=== PATIENT | male | born 2000 | race Caucasian/White ===

== ENCOUNTER 2022-09-16 14:57 | Outpatient (OUT) | payer MEDICAID, SELFPAY ==
--- NOTE | 2022-09-16 15:06 | XR_ITS ---
[address] [address] Patient Name: ZAIRA FREITAS MRN: [id number] date: 2000 Sex: M Assigned Patient Location: RAD Current Patient Location: RAD Accession/Order Number: [id number] Exam Date: 09/16/2022 15:10 Report Date: 09/16/2022 15:55 At the request of: NA SUMNER Procedure: XR chest 2V EXAM: XR chest 2V HISTORY: Acute URI J06.9 . Cough with shortness of breath for 3 days. COMPARISON: 08/09/2013 TECHNIQUE: Upright PA and lateral chest x-ray FINDINGS: The heart is not enlarged and the vasculature is not distended. No acute infiltrate, effusion or pneumothorax is identified. The osseous structures are grossly intact. XR/XR chest 2V IMPRESSION: No acute infiltrate or evidence of cardiac decompensation. The overall appearance of the chest is essentially unchanged. Electronically authenticated by: KELSIE BOONE Date: 09/16/2022 15:55
== END 2022-09-16 14:58 | disposition home or self-care (01) ==
LOC: RAD 15:01
PROVIDERS: PCP Family Medicine; Visit Provider Family Medicine
DX: J06.9 Acute upper respiratory infection, unspecified (principal)
CPT/HCPCS: 71046

== ENCOUNTER 2022-10-05 15:39 | Emergency (ER) | payer MEDICAID, SELFPAY ==
[2022-10-05 15:43] VITALS: BP 163/100; PULSE 100; RESP 20; TEMP 36.6; O2SAT 97; BMI 34.4
--- NOTE | 2022-10-05 15:56 | XR_ITS ---
The [address] [address] Patient Name: ZAIRA FREITAS MRN: [id number] date: 2000 Sex: M Assigned Patient Location: ED.MAIN Current Patient Location: ER Accession/Order Number: [id number] Exam Date: 10/05/2022 16:38 Report Date: 10/05/2022 16:54 At the request of: SPARKLE FINCH Procedure: XR chest 1V EXAMINATION: XR chest 1V HISTORY: Cough COMPARISON: None. TECHNIQUE: Portable chest FINDINGS: The lung parenchyma is free of consolidation or infiltrate. No pneumothorax or pleural effusion. The cardiac, mediastinal and hilar contours are normal. The visualized osseous structures exhibit no gross abnormality. XR/XR chest 1V IMPRESSION: No acute cardiopulmonary abnormality. Electronically authenticated by: DONNELL SOTO Date: 10/05/2022 16:54
--- NOTE | 2022-10-05 15:58 | ED_ITS ---
HPI - URI/Sore Throat General Chief Complaint: Upper Respiratory Infection Stated Complaint: COUGH/SHORTNESS OF BREATH Time Seen by Provider: 10/05/22 15:44 Source: patient and family History of Present Illness HPI Narrative: This document has been composed with a new electronic medical record and [employer] voice recognition system. This document may not fully inaccurately reflect the entirety of the patient encounter.this patient's here with his father for evaluation of an ongoing cough. The father is very frustrated because he's had this cough for approximately one month. He is known to have childhood asthma. He saw his primary care doctor recently and was placed on steroids and amoxicillin. He is notspecifically he was tested for Covid or had a respiratory panel. He is under the care of Dr. Barrera printed circuit board panels developer here but the father says they have never appointments he another printed circuit board panels developer to get another opinion. He had a recent outpatient chest x-ray that did not show any pneumonia. He was placed on some acid blockers in thinking that it might be GERD. No other household members are ill. He does not use tobacco products. Related Data Allergies Allergy/AdvReac Type Severity Reaction Status Date / Time cefotaxime [From Claforan] AdvReac Unknown Verified 10/05/22 15:47 Exam Narrative Exam Narrative: awake alert pleasant good historian no apparent distress. Pulse oximetry today is ninety-seven percent on room air with no respiratory distress. He does not display any cyanosis central or peripheral. His voice and phonation are normal there is no upper airway obstruction or distress. HEENT shows no nasal rhinitis neck is soft and supple no meningeal irritation. Next is lungs were clear but with coughing he has slight respiratory wheezing. I've requested respiratory therapy do peak packs per a flow rates but they no longer have a device to make those measurements apparently according to the restroom therapist. Heart sounds are normal with no clicks or murmurs. Extremities shows no history deep vein thrombosis phlebitis edema or cellulitis. Constitutional Vital Signs, click to edit/add: Last Vital Signs Temp 98 F 10/05/22 15:43 Pulse 100 H 10/05/22 15:43 Resp 20 10/05/22 15:43 BP 163/100 H 10/05/22 15:43 Pulse Ox 97 10/05/22 15:43 O2 Del Method Room Air 10/05/22 15:43 Course Vital Signs Vital signs: Vital Signs Temperature 98 F 10/05/22 15:43 Pulse Rate 100 H 10/05/22 15:43 Respiratory Rate 20 10/05/22 15:43 Blood Pressure 163/100 H 10/05/22 15:43 Pulse Oximetry 97 10/05/22 15:43 Oxygen Delivery Method Room Air 10/05/22 15:43 Temperature 98 F 10/05/22 15:43 Pulse Rate 100 H 10/05/22 15:43 Respiratory Rate 20 10/05/22 15:43 Blood Pressure 163/100 H 10/05/22 15:43 Pulse Oximetry 97 10/05/22 15:43 Oxygen Delivery Method Room Air 10/05/22 15:43 MDM - URI/Sore Throat MDM Narrative Medical decision making narrative: this patient is currently on antibiotics but shows no infectious symptomatology. A PCR respiratory panel was done and is negative for all acute respiratory pathogens. His chest x-ray is completely clear cardiac size is normal. When I auscultate after the breathing treatment is he is better. Upon further questioning it turns out that he has not been using his Symbicort inhaler for the last several months. He's been on that for many years but for some reason was not using it anymore even though he has it at home. I'm advising him to restart that I believe his cough is probably due to mild respiratory bronchospasm and mucous production. They can prop the bed up a little bit in case there is some GERD. They are scheduled to see a new printed circuit board panels developer and they were encouraged to take a list of all his medicines so they can be precisely when the evaluate his medical treatment plan Lab Data Labs: Lab Results 10/05/22 Range/Units 15:57 Adenovirus (PCR) Not detected (NOT DETECTE) C. pneumoniae DNA (PCR) Not detected (NOT DETECTE) Coronavirus Type OC43 Not detected (NOT DETECTE) Coronavirus Type HKU1 Not detected (NOT DETECTE) Coronavirus Type 229E Not detected (NOT DETECTE) Coronavirus Type NL63 Not detected (NOT DETECTE) Human Metapneumovir PCR Not detected (NOT DETECTE) M. pneumoniae (PCR) Not detected (NOT DETECTE) Parainfluenza PCR Not detected (NOT DETECTE) Parainfluenza 2 (PCR) Not detected (NOT DETECTE) Parainfluenza 3 (PCR) Not detected (NOT DETECTE) Parainfluenza 4 (PCR) Not detected (NOT DETECTE) RSV (RT-PCR) Not detected (NOT DETECTE) Entero/Rhino (PCR) Not detected (NOT DETECTE) SARS-CoV-2 (PCR) Not detected (NOT DETECTE) Bordetella pertussis (PCR) Not detected (NOT DETECTE) B parapertussis DNA PCR Not detected (NOT DETECTE) Influenza Type A (PCR) Not detected (NOT DETECTE) Influenza Type B (PCR) Not detected (NOT DETECTE) Discharge Plan Discharge Chief Complaint: Upper Respiratory Infection Clinical Impression: Asthma Patient Disposition: Home, Self-Care Time of Disposition Decision: 17:24 Additional Instructions: restart Symbicort as you've been taking it for many years. Finish her antibiotic. Follow-up with a new printed circuit board panels developer Stand Alone Forms: Portal Instructions Referrals: Juan José Mederos MD [Primary Care Provider] - 1 week
[2022-10-05 16:02] LABS: Adenovirus NOT DETECTED (NOT DETECTE); Bordetella parapertussis NOT DETECTED (NOT DETECTE); Coronavirus 229E NOT DETECTED (NOT DETECTE); Coronavirus HKU1 NOT DETECTED (NOT DETECTE); Coronavirus NL63 NOT DETECTED (NOT DETECTE); Coronavirus OC43 NOT DETECTED (NOT DETECTE); Human Metapneumovirus NOT DETECTED (NOT DETECTE); Human Rhinovirus/Enterovirus NOT DETECTED (NOT DETECTE); Influenza A NOT DETECTED (NOT DETECTE); Influenza B NOT DETECTED (NOT DETECTE); Mycoplasma pneumoniae NOT DETECTED (NOT DETECTE); Parainfluenza Virus 1 NOT DETECTED (NOT DETECTE); Parainfluenza Virus 2 NOT DETECTED (NOT DETECTE); Parainfluenza Virus 3 NOT DETECTED (NOT DETECTE); Parainfluenza Virus 4 NOT DETECTED (NOT DETECTE); Respiratory Syncytial Virus NOT DETECTED (NOT DETECTE); SARS-CoV-2 NOT DETECTED (NOT DETECTE)
[2022-10-05] MEDS: IPRATROPIUM/ALBUTEROL SULFATE 3 ML AMPUL.NEB IH (16:25)
== END 2022-10-05 17:42 | disposition home or self-care (01) ==
PROVIDERS: Emergency Provider Emergency Medicine Emergency Medical Services; PCP Family Medicine
DX: J45.909 Unspecified asthma, uncomplicated (principal); Z20.822 Contact with and (suspected) exposure to COVID-19
CPT/HCPCS: 0202U; 71045; 94640; 99284

== ENCOUNTER 2022-10-07 15:43 | Outpatient (OUT) | payer MEDICAID, SELFPAY ==
[2022-10-07 16:30] LABS: Basophils Absolute Auto 0.1 10^3/uL (0.0-0.1); Basophils Percent Auto 0.8 % (0.2-2.0); Eosinophils Absolute Auto 0.1 10^3/uL (0.0-0.7); Eosinophils Percent Auto 2.2 % (0.9-7.0); Hematocrit 44.6 % (42.0-54.0); Hemoglobin 14.7 g/dL (14.0-18.0); Immature Granulocytes Abs Auto 0.02 10^3/uL (0.00-0.03); Immature Granulocytes Pct Auto 0.3 % (0.0-0.5); Lymphocytes Absolute Auto 2.9 10^3/uL (1.2-3.8); Lymphocytes Percent Auto 44.8 % (20.5-60.0); Mean Corpuscular Hemoglobin 26.9 pg (25.9-34.0); Mean Corpuscular Volume 81.7 fL (80.0-94.0); Monocytes Absolute Auto 0.5 10^3/uL (0.3-0.8); Neutrophils Absolute Auto 2.9 10^3/uL (1.4-6.5); Neutrophils Percent Auto 44.9 % (43.0-75.0); Platelet Count 287 10^3/uL (150-450); Red Blood Count 5.46 10^6/uL (4.70-6.10); Red Cell Distribution Width 14.7 % (11.0-15.0); White Blood Count 6.4 10^3/uL (4.0-11.0)
[2022-10-07 17:11] LABS: Percent Iron Saturation 16.2 %
[2022-10-07 17:22] LABS: Alanine Aminotransferase 40 U/L (16-63); Albumin Globulin Ratio 1.1; Albumin Level 4.1 g/dL (3.4-5.0); Alkaline Phosphatase 86 U/L (46-116); Anion Gap 13.9; Aspartate Amino Transferase 21 U/L (15-37); BUN Creatinine Ratio 11.2; Bilirubin Direct 0.1 mg/dL (0.0-0.2); Bilirubin Total 0.7 mg/dL (0.2-1.0); Calcium 9.4 mg/dL (8.5-10.1); Chloride 102 mmol/L (98-107); Estimated GFR (African America >60 (>=60); Estimated GFR (Non-African Ame >60 (>=60); Free T3 3.31 pg/mL (2.18-3.98); Globulin 3.6 g/dL; Glucose 79 mg/dL (74-106); Potassium 3.9 mmol/L (3.5-5.1); Sodium 140 mmol/L (136-145); Thyroid Stimulating Hormone 0.926 uIU/mL (0.358-3.740); Total Protein 7.7 g/dL (6.4-8.2)
[2022-10-07 17:30] LABS: Free T4 1.12 ng/dL (0.76-1.46)
== END 2022-10-07 15:44 | disposition home or self-care (01) ==
LOC: LAB 15:45
PROVIDERS: PCP Family Medicine; Visit Provider Family Medicine
DX: Z00.00 Encounter for general adult medical examination without abnormal findings (principal)
CPT/HCPCS: 36415; 80048; 80076; 82728; 83540; 83550; 84439; 84443; 84481; 85025

== ENCOUNTER 2022-11-07 16:20 | Emergency (ER) | payer MEDICAID, SELFPAY ==
[2022-11-07 16:22] VITALS: BP 142/90; PULSE 90; RESP 18; TEMP 36.6; O2SAT 99; BMI 38.0
--- NOTE | 2022-11-07 16:27 | PC.NURSE ---
pt presents to ED because pt states that he has had a headache and neck pain for the last month. pt states that he also has a lot of sinus pressure and left ear pain. pt has not seen anyone about this yet. pt did take one aspirin yesterday with no relief. 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
[2022-11-07] MEDS: KETOROLAC TROMETHAMINE 60 MG/2 ML VIAL IM (16:36)
--- NOTE | 2022-11-07 17:02 | ED_ITS ---
HPI - General Adult General Chief complaint: Neck Pain/Injury Stated complaint: Headache Time Seen by Provider: 11/07/22 16:29 Source: patient Mode of arrival: walk-in Limitations: no limitations History of Present Illness HPI narrative: 22-year-old male presents here with a chief complaint of right-sided neck pain. Patient states he pulled a neck muscle 2-3 weeks ago when he was trying to adjust his pillow and he had his head against the headboard. He has no reproducible pain at this time. Patient has no pain to palpation to the midline. He is alert and oriented. After speaking with father he was concerned of his chronic cough. She has a history of acid reflux and asthma. Patient states while doing his breathing treatment and ninety has acid reflux does get worse and makes him cough. Dry nonproductive cough at this time. Lung sounds are clear. Related Data Previous Rx's Medication Instructions Recorded famotidine 20 mg tablet (Pepcid) 20 mg PO DAILY #30 tabs 11/07/22 methocarbamol 500 mg tablet 500 mg PO TID PRN muscle spasm #7 11/07/22 tabs Allergies Allergy/AdvReac Type Severity Reaction Status Date / Time cefotaxime [From Claforan] AdvReac Unknown Verified 10/05/22 15:47 Review of Systems ROS Narrative All Systems are negative except as noted/marked.All systems reviewed and otherwise negative Exam Narrative Exam Narrative: Nurses note and vital signs reviewed and patient is not hypoxic. General: The patient appears well and in no apparent distress. Patient is resting comfortably on cart. Skin: Warm, dry, no pallor noted. There is no rash noted. Head: Normocephalic, atraumatic.neck: no mid line tenderness full range of motion Eye: Normal conjunctiva, no drainage, EOMI. PERRL Respiratory: dry nonproductive cough Patient is in no distress, no accessory muscle use, lungs are clear to auscultation, no wheezing, rales or rhonchi Back: non-tender, no CVA tenderness bilaterally to percussion. GI: Normal bowel sounds, no tenderness to palpation, no masses appreciated. No rebound, guarding, or rigidity noted. Musculoskeletal: The patient has no evidence of calf tenderness, no pitting edema, symmetrical pulses noted bilaterally Neurological: A&O x4, normal speech Psychiatric: Cooperative Constitutional Vital Signs, click to edit/add: Last Vital Signs Temp 97.9 F 11/07/22 16:22 Pulse 86 11/07/22 17:30 Resp 16 11/07/22 17:30 BP 128/80 11/07/22 17:29 Pulse Ox 99 11/07/22 17:29 O2 Del Method Room Air 11/07/22 16:22 Course Vital Signs Vital signs: Vital Signs Temperature 97.9 F 11/07/22 16:22 Pulse Rate 90 11/07/22 16:22 Respiratory Rate 18 11/07/22 16:22 Blood Pressure 142/90 H 11/07/22 16:22 Pulse Oximetry 99 11/07/22 16:22 Oxygen Delivery Method Room Air 11/07/22 16:22 Temperature 97.9 F 11/07/22 16:22 Pulse Rate 86 11/07/22 17:30 Respiratory Rate 16 11/07/22 17:30 Blood Pressure 128/80 11/07/22 17:29 Pulse Oximetry 99 11/07/22 17:29 Oxygen Delivery Method Room Air 11/07/22 16:22 Medical Decision Making [facility] Narrative Medical decision making narrative: 22-year-old presents emergency room with chief complaint of neck pain. Per history of no x-rays are necessary at this time. Patient has no acute injury. Hurting for last several weeks on and off. He has full range motion no pain or midline. Father came into the room and requested x-rays. Patient has had several x-rays over last several weeks chest x-ray due to chronic cough. Patient is a history of acid reflux and asthma. Lung sounds are clear throughout at this time. He is afebrile nontoxic. I believe his cough is chronic due to acid reflux. Not certain patient takes is medications routinely as prescribed. He is given a gastrointestinal cocktail here this evening. Patient was also medicated with Toradol for neck pain. I explained to dad to use ice or heat therapy for his neck. Dad agrees with plan of care. Follow back up with primary care physician for adjustment to his reflux medications. patient is otherwise healthy, no acute distress Differential Diagnosis Differential Diagnosis: neck strain, torticollis, Discharge Plan Discharge Chief Complaint: Neck Pain/Injury Clinical Impression: Gastritis, Neck pain Patient Disposition: Home, Self-Care Time of Disposition Decision: 16:59 Condition: Good Prescriptions / Home Meds: New famotidine [Pepcid] 20 mg tablet 20 mg PO DAILY Qty: 30 0RF methocarbamol 500 mg tablet 500 mg PO TID PRN (Reason: muscle spasm) Qty: 7 0RF Instructions: Gastritis (ED), Neck Pain (ED) Stand Alone Forms: Portal Instructions Referrals: Juan José Mederos MD [Primary Care Provider] - 1 week
[2022-11-07] MEDS: lidocaine HCL 15 ML, MAG HYDROX/ALUMINUM HYD/SIMETH 30 ML, HYOSCYAMINE SULFATE 0.25 MG PO (17:10)
[2022-11-07 17:30] VITALS: PULSE 86; RESP 16
[2022-11-07 17:33] VITALS: BP 128/80; PULSE 86; O2SAT 99
== END 2022-11-07 17:33 | disposition home or self-care (01) ==
PROVIDERS: Emergency Provider Emergency Medicine; PCP Family Medicine
DX: K29.70 Gastritis, unspecified, without bleeding (principal); M54.2 Cervicalgia; K21.9 Gastro-esophageal reflux disease without esophagitis; J45.909 Unspecified asthma, uncomplicated
CPT/HCPCS: 96372; 99284

== ENCOUNTER 2022-11-17 14:53 | Emergency (ER) | payer MEDICAID, SELFPAY ==
[2022-11-17 15:02] VITALS: BP 151/95; PULSE 99; RESP 16; TEMP 36.6; O2SAT 97; BMI 33.5
--- NOTE | 2022-11-17 15:09 | ED_ITS ---
Documented by User: EUGENE Branch 11/17/22 16:22 HPI - Eye Problem General Chief complaint: Eye Problems Stated complaint: eye irritation Time Seen by Provider: 11/17/22 15:09 Source: patient Mode of arrival: walk-in Limitations: no limitations History of Present Illness HPI Narrative: 22-year-old male presents with father for complaint of right eye irritation for the past couple days after he was using his DuoNeb and the paper his medication got into his eye. He has been trying to use Clear Eyes without relief. He does not wear contacts. Denies vision changes, eye pain or discharge. Related Data Previous Rx's Medication Instructions Recorded famotidine 20 mg tablet (Pepcid) 20 mg PO DAILY #30 tabs 11/07/22 methocarbamol 500 mg tablet 500 mg PO TID PRN muscle spasm #7 11/07/22 tabs ketorolac 0.5 % eye drops (Acular) 1 drp ophthalmic (eye) Q8H PRN 11/17/22 itching 2 days #5 mL Allergies Allergy/AdvReac Type Severity Reaction Status Date / Time cefotaxime [From Claforan] AdvReac Unknown Verified 10/05/22 15:47 Review of Systems ROS Status of ROS 10 or more systems reviewed and unremarkable except as noted in history and below Exam Narrative Exam Narrative: General: A&Ox3, no distress, talking in full an complete sentences skin: warm, dry, intact head: normocephalic, atraumatic eyes: PERRLA, EOMI, normal conjunctiva nose: nares patent throat: no stridor neck: supple, trachea midline respiratory: non-labored extremities: FROM x 4 neuro: A&Ox3 psych: appropriate mood and affect, cooperative Constitutional Vital Signs, click to edit/add: Last Vital Signs Temp 98 F 11/17/22 15:02 Pulse 99 H 11/17/22 15:02 Resp 16 11/17/22 15:02 BP 151/95 H 11/17/22 15:02 Pulse Ox 97 11/17/22 15:02 Course Vital Signs Vital signs: Vital Signs Temperature 98 F 11/17/22 15:02 Pulse Rate 99 H 11/17/22 15:02 Respiratory Rate 16 11/17/22 15:02 Blood Pressure 151/95 H 11/17/22 15:02 Pulse Oximetry 97 11/17/22 15:02 Temperature 98 F 11/17/22 15:02 Pulse Rate 99 H 11/17/22 15:02 Respiratory Rate 16 11/17/22 15:02 Blood Pressure 151/95 H 11/17/22 15:02 Pulse Oximetry 97 11/17/22 15:02 MDM - Eye Problem MDM Narrative Medical decision making narrative: Benign exam with no abnormal findings and patient given Acular eyedrops for irritation and to follow-up with the eye doctor. F/u with PCP. afebrile, not tachypneic, not tachycardic, tolerating p.o., not hypoxic, non toxic appearing and ambulating at baseline and hemodynamically stable to be d/c. answered all questions. educated on SE of meds. pt in agreement with tx. educated when to return to ER. Discharge Plan Discharge Chief Complaint: Eye Problems Clinical Impression: Irritation of right eye Patient Disposition: Home, Self-Care Time of Disposition Decision: 15:10 Condition: Good Mode of Transportation: Private Vehicle Prescriptions / Home Meds: New ketorolac [Acular] 0.5 % drops 1 drp ophthalmic (eye) Q8H PRN (Reason: itching) 2 Days Qty: 5 0RF No Action famotidine [Pepcid] 20 mg tablet 20 mg PO DAILY Qty: 30 0RF methocarbamol 500 mg tablet 500 mg PO TID PRN (Reason: muscle spasm) Qty: 7 0RF Instructions: Eye Pain (ED) Stand Alone Forms: Portal Instructions Referrals: Juan José Mederos MD [Primary Care Provider] - 1 week Discharge Date/Time: 11/17/22 15:22 Documented by User: Mendoza Matson MD 11/17/22 16:26 HPI - Eye Problem General Chief complaint: Eye Problems Stated complaint: eye irritation Time Seen by Provider: 11/17/22 15:09 Related Data Previous Rx's Medication Instructions Recorded famotidine 20 mg tablet (Pepcid) 20 mg PO DAILY #30 tabs 11/07/22 methocarbamol 500 mg tablet 500 mg PO TID PRN muscle spasm #7 11/07/22 tabs ketorolac 0.5 % eye drops (Acular) 1 drp ophthalmic (eye) Q8H PRN 11/17/22 itching 2 days #5 mL Allergies Allergy/AdvReac Type Severity Reaction Status Date / Time cefotaxime [From [facility]] AdvReac Unknown Verified 10/05/22 15:47 Exam Constitutional Vital Signs, click to edit/add: Last Vital Signs Temp 98 F 11/17/22 15:02 Pulse 99 H 11/17/22 15:02 Resp 16 11/17/22 15:02 BP 151/95 H 11/17/22 15:02 Pulse Ox 97 11/17/22 15:02 Course Vital Signs Vital signs: Vital Signs Temperature 98 F 11/17/22 15:02 Pulse Rate 99 H 11/17/22 15:02 Respiratory Rate 16 11/17/22 15:02 Blood Pressure 151/95 H 11/17/22 15:02 Pulse Oximetry 97 11/17/22 15:02 Temperature 98 F 11/17/22 15:02 Pulse Rate 99 H 11/17/22 15:02 Respiratory Rate 16 11/17/22 15:02 Blood Pressure 151/95 H 11/17/22 15:02 Pulse Oximetry 97 11/17/22 15:02 MDM - Eye Problem MDM Narrative Medical decision making narrative: Benign exam with no abnormal findings and patient given Acular eyedrops for irritation and to follow-up with the eye doctor. F/u with PCP. afebrile, not tachypneic, not tachycardic, tolerating p.o., not hypoxic, non toxic appearing and ambulating at baseline and hemodynamically stable to be d/c. answered all questions. educated on SE of meds. pt in agreement with tx. educated when to return to ER. I, Dr Matson, have reviewed the above progress note and course of action in the ER; agree with the above. I have personally seen and evaluated this patient, gone over history and physical, and discussed disposition and treatment plan with the patient. Discharge Plan Discharge Chief Complaint: Eye Problems Clinical Impression: Irritation of right eye Patient Disposition: Home, Self-Care Time of Disposition Decision: 15:10 Condition: Good Mode of Transportation: Private Vehicle Prescriptions / Home Meds: New ketorolac [Acular] 0.5 % drops 1 drp ophthalmic (eye) Q8H PRN (Reason: itching) 2 Days Qty: 5 0RF No Action famotidine [Pepcid] 20 mg tablet 20 mg PO DAILY Qty: 30 0RF methocarbamol 500 mg tablet 500 mg PO TID PRN (Reason: muscle spasm) Qty: 7 0RF Instructions: Eye Pain (ED) Stand Alone Forms: Portal Instructions Referrals: Juan José Mederos MD [Primary Care Provider] - 1 week Discharge Date/Time: 11/17/22 15:22
== END 2022-11-17 15:22 | disposition home or self-care (01) ==
PROVIDERS: Emergency Provider Emergency Medicine; PCP Family Medicine
DX: H57.89 Other specified disorders of eye and adnexa (principal); Z79.899 Other long term (current) drug therapy
CPT/HCPCS: 99283

== ENCOUNTER 2022-12-16 14:50 | Outpatient (OUT) | payer MEDICAID, SELFPAY ==
--- NOTE | 2022-12-16 14:53 | CT_ITS ---
[address] [address] Patient Name: ZAIRA FREITAS MRN: [id number] date: 2000 Sex: M Assigned Patient Location: CT Current Patient Location: Accession/Order Number: [id number] Exam Date: 12/16/2022 15:05 Report Date: 12/17/2022 07:29 At the request of: NA SUMNER Procedure: CT chest wo con EXAMINATION: CT chest wo con HISTORY: Cough In Adult COMPARISON: No relevant comparison available. TECHNIQUE: Multi-planar CT images were obtained without and/or with IV contrast as indicated by examination type. Axial, Coronal, and Sagittal images. Dose reduction techniques were achieved by using automated exposure control and/or adjustment of mA and/or kV according to patient size and/or use of iterative reconstruction technique. FINDINGS: LUNGS: No visible pulmonary disease. PLEURA: No mass, effusion, or pneumothorax. VASCULATURE: No abnormality. PETER: No mass or adenopathy. MEDIASTINUM: No mass or adenopathy. CARDIAC: No enlargement, pericardial thickening, or significant calcification. AORTA: No aneurysm or dissection. CHEST WALL: No mass or axillary adenopathy. BONES: No bone lesion or fracture. LIMITED ABDOMEN: No suspicious findings Limited images of the upper abdomen. OTHER: Negative. CT/CT chest wo con IMPRESSION: 1. Normal examination. Electronically authenticated by: ERVIN YOUSIF Date: 12/17/2022 07:29
== END 2022-12-16 14:51 | disposition home or self-care (01) ==
LOC: CT 14:50
PROVIDERS: PCP Family Medicine; Visit Provider Family Medicine
DX: R05.9 Cough, unspecified (principal)
CPT/HCPCS: 71250

== ENCOUNTER 2023-01-30 14:12 | Emergency (ER) | payer MEDICAID, SELFPAY ==
[2023-01-30 14:16] VITALS: BP 157/95; PULSE 96; RESP 18; TEMP 37.1; O2SAT 100; BMI 33.9
--- OUTSIDE RECORDS SUMMARY | 2023-01-30 14:20 | XMS_ITS | CCD ---
Author Name Unknown Address [address] [place] [id number] Organization [facility] Care Team Providers Care Brick Setter Operator Name Role Phone ANA MARTIN Unavailable Unavailable NADNA JC Unavailable Unavailabl e Naderer, Na Francisco Unavailable Unavailabl e NADERER, DR NA Moe Admitting Unavailable NADERER, DR NA Moe Attending Unavailable ZIEBER, DR ERVIN Browning Consulting Unavailable NADERER, DR NA Moe Consulting Unavailable SAMSA, PRANAV Admitting Unavailable SAMSA, PRANAV Attending Unavailable SAMSA, PRANAV Consulting Unavailable SAMSA, PRANAV Admitting Unavailable SAMSA, PRANAV Attending Unavailable NADHOSEA, DR NA Moe Primary Care Unavailable Aryan Vera Unavailable Aryan Vera Attending Unavailable Aryan Vera Admitting Unavailable Na Sumner Primary Care Unavailable Allergies Allergy Classification Reported Allergen(s) Allergy Type Date of Onset Reaction(s) Facility (8 sources) cefotaxime; Translations: [Claforan] Drug Allergy swelled [facility] Repository (1 source) Cefotaxime Drug Allergy 10-28-2022 [facility] Repository Medications Current Medications Medication Drug Class(es) Dates Sig (Normalized) Sig (Original) Albuterol (7 sources) beta2-Adrenergic Agonist Ventolin HFA Active esomeprazole 40 mg delayed release oral capsule (1 source) Proton Pump Inhibitor Start: 11-10-2022 Esomeprazole Magnesium 40 MG 1 capsule 30 MINUTES BEFORE EATING TWICE A DAY Orally TWICE A DAY for 30 days Nov, Active lansoprazole 30 mg delayed release oral capsule (1 source) Proton Pump Inhibitor Start: 11-18-2022 Lansoprazole 30 MG 1 capsule before a meal twice a day Orally twice a day for 30 days Nov, Active montelukast 10 mg oral tablet (7 sources) Leukotriene Receptor Antagonist take 1 tablet by mouth every twenty-four hours Singulair 10 MG 1 tablet in the evening Orally Once a day Active omeprazole 40 mg delayed release oral capsule (5 sources) Proton Pump Inhibitor Start: 01-15-2023 Omeprazole 40 MG 1 capsule 30 minutes before morning meal and one 30 minutes prior to an evening meal Orally twice a day for 30 days Jan, Active take 1 tablet by mouth once dedrick y PriLOSEC OTC 20 MG 1 tablet 30 minutes before morning meal Orally Once a day Active pantoprazole 20 mg delayed release oral tablet (4 sources) Proton Pump Inhibitor take 1 tablet by mouth every twelve hours Pantoprazole Sodium 20 MG 1 tablet Orally TWICE A DAY Active Sertraline (7 sources) Serotonin Reuptake Inhibitor Sertraline HCl Activ e Problems Problem Classification Problem Date Documented Da te Episodic/Chronic Asthma (4 sources) Mild persistent asthma, uncomplicated; Translations: [MILD PERSIST ASTHMA UNCOMPLICATED] Onset: 2 Chronic Esophageal disorders (12 sources) Gastroesophageal reflux disease; Translations: [Gastro-esophageal reflux disease without esophagitis] Onset: 2 Resolved: 2 Chronic Esophageal disorders (1 source) Esophageal disorders; Translations: [Gastro-esophageal reflux disease without esophagitis] Onset: 3 Other gastrointestinal disorders (4 sources) Irritable bowel syndrome with constipation; Translations: [IRRITABLE BOWEL SYND W/CONSTIPATION] Onset: 1 Chronic Other lower respiratory disease (1 source) Shortness of breath; Translations: [SHORTNESS OF BREATH] Onset: 2 Episodic Results Test Name Value Interpretation Reference Range Facility ECHOCARDIO M/2D COMPLETEon 0 10-04-2021 ECHOCARDIO M/2D COMPLETE Patient: VITO FREITAS Exam Date: 10/04/2021 : 2000 Gender:M Ordering : DR. PRANAV RICE . Admission #: [id number] Family : Order #: [id number] CLICK HERE TO VIEW EXAM ECHOCARDIOGRAM REPORT PROCEDURE: CARDIO PULMONARY ECHOCARDIO M/2D COMP INDICATIONS: Shortness of breath COMPARISON: None. DESCRIPTION: COMPLETE ECHOCARDIOGRAM Real-time transthoracic echocardiography with 2D, M-mode, spectral and color flow Doppler performed. QUALITY: Technical quality was good. LEFT VENTRICLE: Normal chamber size. Normal left ventricular wall thickness. Global left ventricular systolic function is normal. LV EF: Calculated left ventricular ejection fraction is 55-60% DIASTOLIC: Normal diastolic function. ATRIAL SEPTUM: LEFT ATRIUM: Normal chamber size. RIGHT ATRIUM: Normal chamber size. RIGHT VENTRICLE: Normal chamber size. Normal right ventricular systolic function. TRICUSPID VALVE: Normal mobility and thickness. No stenosis with trivial regurgitation. No evidence of pulmonary hypertension. RVSP is 27 mmHg MITRAL VALVE: Normal mobility and thickness. No mitral valve prolapse. No evidence of mitral valve stenosis. There is no mitral annular calcification. No mitral regurgitation. AORTIC VALVE: Normal trileaflet appearance. No visible sclerosis. Normal leaflet mobility. No evidence of aortic valve stenosis. No aortic regurgitation. AORTIC ROOT: Normal diameter and appearance. PULMONIC VALVE: Normal thickness and mobility. No stenosis. Trivial regurgitation. PERICARDIUM: No evidence of pericardial effusion. IVC: Normal in size, collapses with inspirations. PLEURA: CONCLUSION: 1. Normal ventricular function. LVEF is 55 to 60%. 2. No significant valvular dysfunction. 3. Normal right-sided pressures. 4. No pericardial effusion. Adult Echocardiography Procedure Report Left Ventricle Left Atrium Mitral Valve Right Ventricle RV Internal Diastolic Dimension: 2.66 cm Aorta Aortic Valve Peak Velocity (Antegrade Flow): 1.13 m/s AoV Area (Peak Babak): 3.33 cm2, 3.36 cm2 AoV Area (VTI): 3.01 cm2, 2.95 cm2 Tricuspid Valve Peak Velocity (Regurgitant Flow): 2.03 m/s, 2.45 m/s Peak Velocity: 0.58 m/s Pulmonic Valve Mean Gradient: 1.78 mm[Hg] Mean Velocity: 0.61 m/s Peak Velocity: 0.91 m/s, 1.01 m/s Peak Gradient: 3.37 mm[Hg], 4.12 mm[Hg] Right Atrium Dictated by: Naldo Hernandez M.D. on 10/04/2021 at 14:57 Approved by: Naldo Hernandez M.D. on 10/04/2021 at 15:01 Normal [facility] XR ABD FLAT_UPon 11-16-2020 XR ABD FLAT_UP EXAMINATION: XR ABD FLAT_UP HISTORY: Irritable bowel syndrome characterized by constipation , bilateral lower quadrant pain COMPARISON: XR upper GI 06/23/2019 FINDINGS: BOWEL GAS PATTERN: No abnormal dilation or suspicious fluid levels. Mild-moderate stool burden. FREE AIR: None. CALCIFICATIONS: None significant. BONES: No fracture or visible bone lesion. OTHER: Negative. IMPRESSION: 1. Normal bowel gas pattern. No acute or suspicious abdominal findings. Electronically authenticated by: ERVIN YOUSIF Date: 2020-11-16 06:42 Normal [facility] Otolaryngology Consultationo n 03-23-2017 Otolaryngology Consultation Chief Complaint Ear infections.History of Present Illness This is a pleasant 16-year-old young man who for the last 3 years is noted recurring episodes of acute ear infections requiring antibiotic therapy. He has had at least 5 infections this last year with the symptoms resolving after antibiotics for 1 week. He denies otorrhea or hearing loss with these episodes. He also denies associated upper respiratory infections with these episodes.Review of Systems General Appetite change: No Weakness: No Weight gain: No Weight Loss: No Cardiovascular Chest pain/pressure: No Palpitations: No EENMT Ear pain: Yes Nasal congestion: No Nasal discharge: No Gastrointestinal Dysphagia: No Heartburn: Yes Genitourinary Hematologic/Lymphatic Bleeding tendencies: No Bruising: No Musculoskeletal Back pain: No Joint pain: No Joint stiffness: No Neurological Headache: No Psychiatric Anxiety: Yes Depression: No Respiratory Cough: No Shortness_of_breath: No Wheezing: No Skin Change in skin color: No Itching: No Lesion/change in moles: No Rash: NoPhysical Exam Vitals & Measurements BP: 135/80 WT: 119 kg General: [Alert and oriented, well nourished, no acute distress]. Eye: [PERRL, EOMI, normal conjunctiva]. HENT: [Normocephalic, clear tympanic membranes, normal hearing Nose: Open airway without intranasal purulence or stasis. Oral cavity: Very active gag reflex with healthy mucosa and good dental repair. Oropharynx unremarkable post tonsillectomy Neck: [Supple, TMJ's non-tender, no lymphadenopathy]. Lungs: [Clear to auscultation and percussion, non-labored respiration]. Heart: [Normal rate, regular rhythm, no murmur, gallop or edema]. Skin: [Skin is warm, dry and pink, no rashes or lesions]. Neurologic: [Awake, alert, and oriented X3, CN II-XII intact]. Psychiatric: [Cooperative, appropriate mood and affect]. Additional Vitals Body Mass Index Measured: 37.56 kg/m2 BP Position/Location: Sitting, Right arm Peripheral Pulse Rate: 90 bpmAssessment/Plan 1. Acute otitis media Recommendation: With an essentially normal exam and a history recurrent acute otitis media which is very uncommon for an 16-year-old I'm going to treat him with Flonase in the thought that this could be related to chronic rhinitis. The next time he has no infection I've asked dad to call so we can see him then.Problem List/Past Medical History Ongoing Anxiety Asthma Ear infection Historical No qualifying dataProcedure/Surgical History Myringotomy, Tonsillectomy.Medicati ons Home Singulair 10 mg oral tablet, 10 mg, 1 tabs, Oral, Daily Inpatient No active inpatient medications Prescriptions No active PrescriptionsAllergies Claforan (Rash)Social History Alcohol Never Substance Abuse Denies All Tobacco Never smokerFamily History Cancer: Grandfather (P).Lab Results Microbiology No qualifying data available.Electronical ly signed by Ana Martin MD 03/23/17 13:[address] [facility] Provider Letteron 03-23-2017 Provider Letter [id number] [place], [place] [address]Qw: Vito EstepDate of Visit: 03/23/2017Dear Na Sumner,Thank you for the referral of your patient to our office.Let me know if you have any questions or concerns.Sincerely,Cintia Feldman Providers:The following document(s) were included in the letter:March 23, 2017 13:27:00 EST - (03/23/2017) Consult Note Normal [facility] Vital Signs Date Time Vital Sign Value Performing Clinician Facility 10-25-2021 10:45-0400 Body height 182.88 cm Aryan Laurentdann Other [facility] Other 10-25-2021 10:45-0400 Body mass index (BMI) [Ratio] 35.39 kg/m2 Aryan Vera Other [facility] Other 10-25-2021 10:45-0400 Body weight 118.39 kg Aryan Vera Other [facility] Other 10-25-2021 10:45-0400 Diastolic blood pressure 95 mm[Hg] Aryan Vera Other [facility] Other 10-25-2021 10:45-0400 Systolic blood pressure 139 mm[Hg] Aryan Vera Other [facility] Other Encounters Encounter Date Encounter Type Care Provider Facility Start: 01-13-2023 End: 01-13-2023 ambulatory Aryan Vera Other [facility] Other Start: 01-13-2023 Telephone encounter [facility]ryan [facility] Start: 11-18-2022 End: 11-18-2022 ambulatory Aryan Vera Other [facility] Other Start: 11-18-2022 Telephone encounter Aryan [facility] Start: 11-05-2022 End: 11-05-2022 ambulatory Aryan Vera Other [facility] Other Start: 11-05-2022 Telephone encounter [facility]ryan [facility] Start: 10-31-2022 End: 10-31-2022 ambulatory Aryan Vera Other [facility] Other Start: 10-31-2022 Telephone encounter Aryan [facility] Start: 10-28-2022 End: 10-28-2022 ambulatory Aryan Vera Facility:[facility] Start: 08-01-2022 End: 08-01-2022 ambulatory Aryan Vera Other [facility] Other Start: 08-01-2022 Telephone encounter Aryan Vera [facility] Start: 11-13-2021 End: 11-13-2021 ambulatory Aryan Vera Other [facility] Other Start: 11-13-2021 Telephone encounter Aryan Vera [facility] Start: 10-25-2021 End: 10-25-2021 ambulatory Aryan Vera Other [facility] Other Start: 10-25-2021 [facility] visit new patient Aryan Vera [facility] Start: 10-23-2021 ambulatory PRANAV RICE Facility:[facility] Start: 10-04-2021 End: 10-05-2021 ambulatory PRANAV RICE Facility:[facility] Start: 11-15-2020 End: 11-16-[address] NA SUMNER Facility:[facility] Start: 03-23-2017 End: 03-24-2017 Ambulatory ANA MARTIN Facility[facility] Payers Date Payer Category Payer Medicaid [id number] 2022 Self-pay 2013 Unknown 2000 Unknown [id number] .[id number] 2000 Unknown [id number] .[id number] 2000 Unknown [id number] .16.84 [id number] 1959 Unknown [id number] 1959 Unknown [id number] 1959 Unknown [id number] Medicaid [id number]. [id number] Unknown [id number] Social History Date Type Detail Facility Unknown if ever smoked [facility] Other Sex Assigned At Sex Assigned At Bir th [facility] Other Evaluation note 10-25-2021 Note Date & Type Note Facility 10-25-2021 Evaluation note Encounter Date Diagnosis Assessment Notes Oct, GERD (gastroeso phageal reflux disease) (ICD-10 - K21.9) CONTINUE PRILOSEC OT 20 MG DAILY CONTINUE PANTOPRAZOLE 20 MG TWICE A DAY [facility] Other Evaluation note Note Date & Type Note Facility Evaluation note No Information [facility] Other History general Narrative - Reported Note Date & Type Note Facility History general Narrative - Reported Type Medical History Asthma Medical History Anxiety Surgical History tubes in ears as a young child Surgical History tonsillectomy 2002 Hospitalization History [facility] as an [facility] Other Reason for visit Narrative Note Date & Type Note Facility Reason for visit Narrative PATIENT HERE AT THE REQUEST OF DR PRANAV RICE FOR EVALUATION & TREATMENT OF GERD [facility] Other Summary Purpose Family History No Family History Records FoundNo Family History Records FoundNo Family History Records Found Advance Directives No Advanced Directives Records FoundNo Advanced Directives Records FoundNo Advanced Directives Records Found Additional Source Comments (unrecognized sect ion and content) No Status Records FoundNo Status Records FoundNo Status Records Found INFORMATION SOURCE (unrecogn ized section and content) DATE CREATED AUTHOR 08/03/2017 [facility] DATE CREATED AUTHOR AUTHOR'S ORGANIZ ATION 10/21/2021 [facility] DATE CREATED AUTHOR AUTHOR'S ORGANIZ ATION 11/10/2022 [facility] REASON FOR VISIT (unrecogniz ed section and content) ClinicalClinicalorders per d octorDEXILANT NOT WORKINGRX DENIAL/NEW RXClinical Acute Medicine FOR RECORDS PERTAINING TO PATIENTS WHO ARE OR HAVE BEEN ENROLLED IN A CHEMICAL DEPENDENCY/SUBSTANCEABUSE PROGRAM, SOME INFORMATION MAY BE OMITTED. This clinical summary was aggregated from multiple sources. Caution should be exercised in using it in the provision of clinical care. This summary normalizes information from multiple sources, and as a consequence, information in this document may materially change the coding, format and clinical context of patient data. In addition, data may be omitted in some cases. CLINICAL DECISIONS SHOULD BE BASED ON THE PRIMARY CLINICAL RECORDS. [facility]. provides no warranty or guarantee of the accuracy or completeness of information in this document.
--- NOTE | 2023-01-30 14:46 | ECG_ITS ---
[facility] Test Date: 2023-01-30 Pat Name: ZAIRA FREITAS Department: Room: - Gender: Male Gmat Tutor: : 2000 Requested By: NA SUMNER Order Number: [id number] Reading MD: RONY FOFANA Measurements Intervals Elbe Rate: 87 P: 46 MN: 142 QRS: 27 QRSD: 78 T: 36 QT: 336 QTc: 380 Interpretive Statements 1100 Sinus rhythm 9110 normal ECG No previous ECG available for comparison Electronically Signed On 02-03-2023 7:51:55 EST by RONY FOFANA
[2023-01-30 14:51] VITALS: PULSE 93; O2SAT 98
--- NOTE | 2023-01-30 14:54 | ED_ITS ---
HPI - General Adult General Chief complaint: Skin/Abscess/Foreign Body Stated complaint: FOREIGN OBJECT IN THROAT Time Seen by Provider: 01/30/23 14:38 Source: patient Mode of arrival: walk-in Limitations: no limitations History of Present Illness HPI narrative: Patient is a 22-year-old male who is presenting to the Emergency Room with chief complaint of a foreign body sensation to the right side Of his neck. Patient was at [facility], patient was eating [place] toast along with roast beef and mashed potatoes. Patient said that when he swallowed the [place] toast, he felt like it got stuck in his throat. Patient has a foreign body sensation to the right side of his posterior pharynx/upper esophagus. Patient was given a glass of water and drink it all and no difficulty by Darrel ABBASI. Patient has developmental delay at baseline. Patient also sitting has mild right-sided chest tightness with no radiation. Patient has no cardiac history. Patient's had no heavy lifting, twisting or turning. Patient has no other acute complaints. Patient has no difficulty breathing, no stridor. . All systems are negative except as noted/marked. All systems reviewed and otherwise negative. . Nurses note and vital signs reviewed and patient is not hypoxic. General: The patient appears well and in no apparent distress. Patient is resting comfortably on cart. Patient is not toxic, lethargic, or listless Skin: Warm, dry, no pallor noted. There is no rash noted. No petechiae, purpura. Head: Normocephalic, atraumatic. Patient was given a glass of water to drink and no difficulty. Eye: Normal conjunctiva, no drainage, EOMI. PERRL Ears, Nose, Mouth, and Throat: oral mucosa is moist. Patient has no evidence of bleeding, scratches, foreign bodiees the posterior pharynx is visualized with oral examination. No unilateral swelling. No uvula swelling. No acute abnormalities seen intraoral. No signs of Rashaun angina. Cardiovascular: Regular Rate and Rhythm, no murmur, gallop, rub. Patient has no reproducible Tenderness to palpation to bilateral anterior, lateral, posterior chest wall. Respiratory: Patient is in no distress, no accessory muscle use, lungs are clear to auscultation, no wheezing, rales or rhonchi Back: non-tender, no CVA tenderness bilaterally to percussion. No CT LS midline pain GI: soft, nontender, Musculoskeletal: Patient has full range of motion of all of the extremities, no motor, sensory, or focal neurological deficits Neurological: A&O x3, normal speech Psychiatric: Cooperative Related Data Previous Rx's Medication Instructions Recorded famotidine 20 mg tablet (Pepcid) 20 mg PO DAILY #30 tabs 11/07/22 methocarbamol 500 mg tablet 500 mg PO TID PRN muscle spasm #7 11/07/22 tabs ketorolac 0.5 % eye drops (Acular) 1 drp ophthalmic (eye) Q8H PRN 11/17/22 itching 2 days #5 mL Allergies Allergy/AdvReac Type Severity Reaction Status Date / Time cefotaxime [From [facility]] AdvReac Unknown Verified 01/30/23 14:19 PFSH PFSH Social History Smoking status: Never smoker Exam Constitutional Vital Signs, click to edit/add: Last Vital Signs Temp 98.7 F 01/30/23 14:16 Pulse 96 H 01/30/23 14:16 Resp 18 01/30/23 14:16 BP 157/95 H 01/30/23 14:16 Pulse Ox 98 01/30/23 14:51 O2 Del Method Room Air 01/30/23 14:51 Course Vital Signs Vital signs: Vital Signs Temperature 98.7 F 01/30/23 14:16 Pulse Rate 96 H 01/30/23 14:16 Respiratory Rate 18 01/30/23 14:16 Blood Pressure 157/95 H 01/30/23 14:16 Pulse Oximetry 100 01/30/23 14:16 Oxygen Delivery Method Room Air 01/30/23 14:16 Temperature 98.7 F 01/30/23 14:16 Pulse Rate 96 H 01/30/23 14:16 Respiratory Rate 18 01/30/23 14:16 Blood Pressure 157/95 H 01/30/23 14:16 Pulse Oximetry 98 01/30/23 14:51 Oxygen Delivery Method Room Air 01/30/23 14:51 Medical Decision Making MDM Narrative Medical decision making narrative: EKG showed no acute abnormalities. Patient was able to have a red popsicle and drink a glass water no difficulty. The popsicle helped his pain. Patient will follow-up with PCP. Patient her score is 0. Patient has a history of acid reflux. Education on taking his acid reflux medication along with using Maalox or Mylanta if needed for flareups was discussed at bedside. No questions at discharge. ECG Data Attestation: I personally reviewed and interpreted this ECG as follows: (EKG interpretation. Normal sinus rhythm 87 beats a minute. Normal axis deviation. No acute ST elevation, no acute ectopy. QTC of 380.) Discharge Plan Discharge Chief Complaint: Skin/Abscess/Foreign Body Clinical Impression: Foreign body sensation in throat Patient Disposition: Home, Self-Care Time of Disposition Decision: 14:39 Prescriptions / Home Meds: No Action famotidine [Pepcid] 20 mg tablet 20 mg PO DAILY Qty: 30 0RF methocarbamol 500 mg tablet 500 mg PO TID PRN (Reason: muscle spasm) Qty: 7 0RF ketorolac [Acular] 0.5 % drops 1 drp ophthalmic (eye) Q8H PRN (Reason: itching) 2 Days Qty: 5 0RF Instructions: Foreign Body Ingestion (ED) Additional Instructions: Drink ice water Popsicles next one or 2 days. Continue taking acid medication daily as needed. Follow-up with her PCP. Stand Alone Forms: Portal Instructions Referrals: Juan José Mederos MD [Primary Care Provider] - 1 week Discharge Date/Time: 01/30/23 15:01
== END 2023-01-30 15:01 | disposition home or self-care (01) ==
PROVIDERS: Emergency Provider Emergency Medicine; PCP Family Medicine
DX: R09.A2 Foreign body sensation, throat (principal); R07.89 Other chest pain; K21.9 Gastro-esophageal reflux disease without esophagitis
CPT/HCPCS: 93005; 99283

== ENCOUNTER 2023-03-29 20:58 | Emergency (ER) | payer MEDICAID, SELFPAY ==
--- OUTSIDE RECORDS SUMMARY | 2023-03-29 21:03 | XMS_ITS | CCD ---
Author Name Unknown Address [address] [facility] [address] [place] [address] Organization [facility] Care Team Providers Care Logging Worker Name Role Phone ANA MARTIN Unavailable Unavailable NADERERJUAN JOSÉ Unavailable Unavailabl e Naderer, Juan José Francisco Unavailable Unavailabl e NADERER, DR JUAN JOSÉ Moe Admitting Unavailable NADERER, DR JUAN JOSÉ Moe Attending Unavailable ZIEBER, DR ERVIN Browning Consulting Unavailable NADERER, DR JUAN JOSÉ Moe Consulting Unavailable SAMSA, PRANAV Admitting Unavailable SAMSAPRANAV Attending Unavailable SAMSAPRANAV Consulting Unavailable SAMSA, PRANAV Admitting Unavailable SAMSA, PRANAV Attending Unavailable NADERENam, DR JUAN JOSÉ Moe Primary Care Unavailable Aryan Vera Unavailable Aryan Vera Attending Unavailable Aryan Vera Admitting Unavailable Juan José Sumner Primary Care Unavailable JUAN JOSÉ SUMNER Attending Unavailable Juan José Sumner MD Primary Care Provider Allergies Allergy Classification Reported Allergen(s) Allergy Type Date of Onset Reaction(s) Facility (8 sources) cefotaxime; Translations: [Claforan] Drug Allergy swelled up [facility] Repository (1 source) Cefotaxime Drug Allergy 3 [facility] Repository (1 source) Cefotaxime Drug Allergy 4 [facility] Healthcare (1 source) Cephalosporins (Antibiotic) Propensity to adverse reactions [address] [facility] Medications Current Medications Medication Drug Class(es) Dates Sig (Normalized) Sig (Original) [id number] 200 actuat albuterol 0.09 mg/actuat metered dose inhaler (10 sources) beta2-Adrenergic Agonist Start: 03-19-2023 take 2 puff(s) by inhalation every four hours for wheezing albuterol HFA 90 mcg/act inhaler Indications: Mild persistent asthma, uncomplicated (CMS/HCC) Inhale 2 puffs every 4 (four) hours if needed for wheezing or shortness of breath 18 g 3 03/19/2023 Active Start: 01-02-2023 End: 03-19-2023 take 2 puff(s) by inhalation every six hours for wheezing albuterol HFA 90 mcg/act inhaler Inhale 2 puffs every 6 (six) hours if needed for wheezing or shortness of breath 0 01/02/2023 03/19/2023 Discontinued (Reorder) Start: 08-27-2022 albuterol (2.5 MG/3ML) 0.083% nebulizer solution Take 2.5 mg by nebulization every 6 (six) hours if needed for shortness of breath or wheezing 0 08/27/2022 Active Ventolin HFA Act bud albuterol 0.833 mg/ml / ipratropium bromide 0.167 mg/ml inhalation solution (1 source) Anticholinergic, beta2-Adrenergic Agonist Start: 01-03-2023 ipratropium-albuterol (Duo-Neb) 0.5-2.5 mg/3 mL nebulizer solution Take 3 mL by nebulization in the morning and 3 mL at noon and 3 mL in the evening and 3 mL before bedtime. 0 01/03/2023 Active 60 actuat budesonide 0.16 mg/actuat / formoterol fumarate 0.0045 mg/actuat metered dose inhaler (1 source) Corticosteroid, beta2-Adrenergic Agonist Start: 01-02-2023 take 2 puff(s) by inhalation in the morning Symbicort 160-4.5 MCG/ACT inhaler Inhale 2 puffs in the morning and 2 puffs before bedtime. 0 01/02/2023 Active esomeprazole 40 mg delayed release oral capsule (1 source) Proton Pump Inhibitor Start: 11-10-2022 Esomeprazole Magnesium 40 MG 1 capsule 30 MINUTES BEFORE EATING TWICE A DAY Orally TWICE A DAY for 30 days Nov, Active hydrOXYzine hydrochloride 25 mg oral tablet (1 source) Antihistamine Start: 11-26-2022 take 1 tablet by mouth four times daily as needed for anxiety hydrOXYzine HCl (Atarax) 25 MG tablet Take 25 mg by mouth 4 (four) times a day as needed for anxiety 0 11/26/2022 Active ketoconazole 20 mg/ml medicated shampoo (1 source) Azole Antifungal Start: 03-19-2023 ketoconazole (Nizoral) 2 % shampoo Indications: Seborrheic dermatitis Apply topically 2 (two) times a week 120 mL 3 03/19/2023 Active Start: 03-19-2023 ketoconazole ( Nizoral) 2 % shampoo Indications: Seborrheic dermatitis Apply topically 2 (two) times a week 120 mL 3 03/19/2023 Active lansoprazole 30 mg delayed release oral capsule (2 sources) Proton Pump Inhibitor Start: 11-18-2022 Lansoprazole 30 MG 1 capsule before a meal twice a day Orally twice a day for 30 days Nov, Active montelukast 10 mg oral tablet (8 sources) Leukotriene Receptor Antagonist Start: 01-02-2023 take 1 tablet by mouth at bedtime montelukast (Singulair) 10 MG tablet Take 10 mg by mouth at bedtime 0 01/02/2023 Active omeprazole 40 mg delayed release oral [...] 1 tablet Orally TWICE A DAY Active sertraline 100 mg oral tablet (8 sources) Serotonin Reuptake Inhibitor Start: take 1 tablet by mouth in the morning sertraline (Zoloft) 100 MG tablet Indications: Moderate episode of recurrent major depressive disorder (HCC) (CMS/HCC) Take 1 tablet (100 mg) by mouth in the morning. 30 tablet 5 02/23/2023 Active Sertraline HCl A ctive Problems Problem Classification Problem Date Documented Da te Episodic/Chronic Anxiety disorders (1 source) Generalized anxiety disorder; Translations: [Generalized anxiety disorder] Onset: 4 02-23-2023 Chronic Asthma (6 sources) Mild persistent asthma, uncomplicated; Translations: [Uncomplicated mild persistent asthma] Onset: 2 Chronic Esophageal disorders (13 sources) Gastroesophageal reflux disease; Translations: [Gastro-esophageal reflux disease without esophagitis] Onset: 2 Resolved: 2 Chronic Esophageal disorders (1 source) Esophageal disorders; Translations: [Gastro-esophageal reflux disease without esophagitis] Onset: 3 Nutritional deficiencies (1 source) Vitamin D deficiency; Translations: [Vitamin D deficiency, unspecified] Onset: 4 02-23-2023 Chronic Other gastrointestinal disorders (4 sources) Irritable bowel syndrome with constipation; Translations: [IRRITABLE BOWEL SYND W/CONSTIPATION] Onset: 1 Chronic Other inflammatory condition of skin (1 source) Seborrheic dermatitis; Translations: [Seborrheic dermatitis, unspecified] Onset: 4 03-17-2023 Episodic Other lower respiratory disease (1 source) Shortness of breath; Translations: [SHORTNESS OF BREATH] Onset: 2 Episodic Other nutritional; endocrine; and metabolic disorders (1 source) Body mass index 30+ - obesity; Translations: [Obesity, unspecified] Onset: 4 02-23-2023 Chronic Other upper respiratory disease (1 source) Allergic rhinitis due to pollen; Translations: [Allergic rhinitis due to pollen] Onset: 4 02-23-2023 Chronic Other upper respiratory infections (1 source) Acute pansinusitis; Translations: [Acute pansinusitis, unspecified] Onset: 4 02-23-2023 Episodic Results Test Name Value Interpretation Reference Range Facility ECHOCARDIO M/2D COMPLETEon 0 10-04-2021 ECHOCARDIO M/2D COMPLETE Patient: VITO JAIN Exam Date: 10/04/2021 : 2000 Gender:M Ordering : DR. PRANAV RICE . Admission #: [id number] Family : Order #: [id number] CLICK HERE TO VIEW EXAM ECHOCARDIOGRAM REPORT [...] Naldo Hernandez M.D. on 10/04/2021 at 15:01 [facility] XR ABD FLAT_UPon 11-16-2020 XR ABD FLAT_UP [...] ERVIN YOUSIF Date: 2020-11-16 06:42 Normal [facility] Otolaryngology Consultationo n 03-23-2017 Otolaryngology Consultation Chief [...] No active inpatient medications Prescriptions No active PrescriptionsMayo Law (Rash)Social History Alcohol Never Substance Abuse Denies All Tobacco Never smokerFamily History Cancer: Grandfather (P).Lab Results Microbiology No qualifying data available.Electronical ly signed by Ana Martin MD 03/23/17 13:29 EST Normal [facility] Provider Letteron 03-23-2017 Provider Letter Juan José Past[address] [place], [place] [address]Dk: Vito RodriguezpDate of Visit: 03/23/2017Dear Juan José Sumner,Thank you for the referral of your patient to our office.Let me know if you have any questions or concerns.Sincerely,Cintia Feldman Providers:The following document(s) were included in the letter:March 23, 2017 13:27:00 EST - (03/23/2017) Consult Note [facility] Vital Signs Date Time Vital Sign Value Performing Clinician Facility 10-25-2021 10:45-0400 Body height 182.88 cm Aryan Vera Other [facility] Other 10-25-2021 10:45-0400 Body mass index (BMI) [Ratio] 35.39 kg/m2 Aryan Damarideandre Other [facility] Other 10-25-2021 10:45-0400 Body weight 118.39 kg Aryan Vera Other [facility] Other 10-25-2021 10:45-0400 Diastolic blood pressure 95 mm[Hg] Aryan Vera Other [facility] Other 10-25-2021 10:45-0400 Systolic blood pressure 139 mm[Hg] Aryan Damarideandre Other [facility] Other Encounters Encounter Date Encounter Type Care Provider Facility Start: 03-19-2023 Orders Only Juan José Holman D Work Phone: [facility] Comment on above: Mild persistent asth ma, uncomplicated (CMS/HCC) (Primary Dx) Start: 02-23-2023 End: 02-23-2023 ambulatory JUAN JOSÉ SUMNER Not Available Start: 01-13-2023 End: 01-13-2023 ambulatory Aryan Vera Other [facility] Other Start: 01-13-2023 Telephone encounter [facility] Start: 11-18-2022 End: 11-18-2022 ambulatory Aryan Vera Other [facility] Other Start: 11-18-2022 Telephone encounter A[facility] Start: 11-05-2022 End: 11-05-2022 ambulatory Aryan Vera Other [facility] Other Start: 11-05-2022 Telephone encounter Aryan TITUS [facility] Start: 10-31-2022 End: 10-31-2022 ambulatory Aryan Vera Other [facility] Other Start: 10-31-2022 Telephone encounter Aryan Vera [facility] Start: 10-28-2022 End: 10-28-2022 ambulatory Aryan Vera Facility:[facility] Start: 08-01-2022 End: 08-01-2022 ambulatory Aryan Vera Other [facility] Other Start: 08-01-2022 Telephone encounter Aryan [facility]US [facility] Start: 11-13-2021 End: 11-13-2021 ambulatory Aryan Vera Other [facility] Other Start: 11-13-2021 Telephone encounter Aryan [facility] Start: 10-25-2021 End: 10-25-2021 ambulatory Aryan Vera Other [facility] Other Start: 10-25-2021 [facility] visit new patient Aryan Vera [facility] Start: 10-23-2021 ambulatory PRANAV RICE Facility:[facility] Start: 10-04-2021 End: 10-05-2021 ambulatory PRANAV RICE Facility:[facility] Start: 11-15-2020 End: 11-16-[address] JUAN JOSÉ SUMNER Facility:[facility] Start: 03-23-2017 End: 03-24-2017 Ambulatory ANA MARTIN Facility:[facility] Plan of Treatment Date Care Activity Detail Author Start: 05-26-2023 End: 05-26-2023 Patient encounter procedure 05/26/2023 1:00 PM EDT Office Visit [facility] [address] [place] [address] Juan José Sumner MD [address] [place] [address] [facility] Start: 10-10-2022 Influenza vaccination Influenza Vacc ine (#1) [facility] Healthcare Payers Date Payer Category Payer Self-pay 2022 Medicaid [id number] 2022 Medicaid [place] [employer] [id number] 2022-Present [address] [place] [address] [id number] 2013 Unknown 2000 Unknown [id number] 2000 Unknown [id number] 2000 Unknown [id number] 2000 Unknown [id number] 1959 Unknown [id number] 1959 Unknown [id number] 1959 Unknown [id number] Medicaid [id number] Unknown [id number] Social History Date Type Detail Facility Unknown if ever smoked [facility] Other Start: 01-27-2023 End: 02-23-2023 Sex Assigned At [facility] Start: 02-23-2023 Tobacco smoking status MSIS Never smoked tobacco [facility] Start: 02-23-2023 Tobacco use and exposure Smokeless tobacco non-user [facility] Start: 01-27-2023 End: 02-23-2023 History of Social function [facility] Start: 2000 Sex Assigned At Not on file [facility] Evaluation note 10-25-2021 Note Date & Type Note Facility 10-25-2021 Evaluation note Encounter Date Diagnosis Assessment Notes Oct, GERD (gastroeso phageal reflux disease) (ICD-10 - K21.9) CONTINUE PRILOSEC OT 20 MG DAILY CONTINUE PANTOPRAZOLE 20 MG TWICE A DAY [facility] Other Evaluation note Note Date & Type Note Facility Evaluation note No Information [facility] Other Evaluation note Note Date & Type Note Facility Evaluation note Diagnosis Mild persistent asthma, uncomplicated (CMS/HCC)- Primary documented in this encounter [facility] History general Narrative - Reported Note Date & Type Note Facility History general Narrative - Reported Type Medical History Asthma Medical History Anxiety Surgical History tubes in ears as a young child Surgical History tonsillectomy 2002 Hospitalization History RSV as an infant [facility] [employer] Other Reason for visit Narrative Note Date & Type Note Facility Reason for visit Narrative PATIENT HERE AT THE REQUEST OF DR PRANAV RICE FOR EVALUATION & TREATMENT OF GERD [place] [employer] Other Summary Purpose Family History No Family History Records FoundNo Family History Records FoundNo Family History Records FoundNo Family History Records Found Advance Directives No Advanced Directives Records FoundNo Advanced Directives Records FoundNo Advanced Directives Records FoundNo Advanced Directives Records Found Additional Source Comments (unrecognized sect ion and content) No Status Records FoundNo Status Records FoundNo Status Records FoundNo Status Records Found INFORMATION SOURCE (unrecogn ized section and content) DATE CREATED AUTHOR 08/03/2017 [facility] DATE CREATED AUTHOR AUTHOR'S ORGANIZ ATION 10/21/2021 [facility] DATE CREATED AUTHOR AUTHOR'S ORGANIZ ATION 11/10/2022 [facility] DATE CREATED AUTHOR AUTHOR'S ORGANIZ ATION 02/24/2023 [facility] dical Specialists EPIC REASON FOR VISIT (unrecogniz ed section and content) ClinicalClinicalorders per d octorDEXILANT NOT WORKINGRX DENIAL/NEW RXClinical Acute Medicine Care Teams (unrecognized sec tion and content) Logging Worker Relationship Specialty Start Date End Date Juan José Sumner MD PCP - General Family Medicine 08/27/22 FOR RECORDS PERTAINING TO PATIENTS WHO ARE [...] BE BASED ON THE PRIMARY CLINICAL RECORDS. [facility] [place] [employer] [facility]. provides no warranty or guarantee of the accuracy or completeness of information in this document.
[2023-03-29 21:10] VITALS: BP 154/83; PULSE 115; RESP 16; TEMP 36.7; O2SAT 97; BMI 31.9
--- NOTE | 2023-03-29 21:18 | ED.URI1 ---
HPI - URI/Sore Throat General Chief Complaint: Upper Respiratory Infection Stated Complaint: Sore Throat Time Seen by Provider: 03/29/23 21:03 Source: patient Limitations: no limitations History of Present Illness HPI Narrative: Patient is a 22-year-old male who presents to the ER with mild developmental delay for the evaluation of a sore throat for the last 2 to 3 hours. No medications were taken prior to arrival. Patient's father is at bedside and states that they were concerned that the sore throat may get worse overnight and the patient's father has to work in the morning. He has had no fevers, chills, cough, congestion. He has been eating and drinking without difficulty today. No difficulty breathing, vomiting, diarrhea.No sick contacts in the home. Patient was ordered to have a COVID and influenza screen, patient refused COVID and influenza testing and allowed only strep testing. Related Data Home Medications Medication Instructions Recorded Confirmed albuterol sulfate 2.5 mg/3 mL 2.5 mg inhalation Q8H PRN 03/29/23 03/29/23 (0.083 %) solution for nebulization shortness of breath or wheezing Previous Rx's Medication Instructions Recorded famotidine 20 mg tablet (Pepcid) 20 mg PO DAILY #30 tabs 11/07/22 Allergies Allergy/AdvReac Type Severity Reaction Status Date / Time cefotaxime [From Claforan] AdvReac Unknown Verified 03/29/23 21:13 Review of Systems ROS Constitutional Denies: fever or chills Ears, nose, mouth, and throat Reports: throat pain; Denies: difficulty swallowing or nasal congestion Cardiovascular Denies: chest pain Respiratory Denies: shortness of breath or cough Gastrointestinal Denies: nausea or vomiting Integumentary/Breast Denies: rash Neurological Denies: headache Endocrine Denies: excessive urination Hematologic/Lymphatic Denies: easy bruising PFSH PFSH Social History Smoking status: Never smoker Exam Narrative Exam Narrative: Gen.: Awake, alert, in no distress Head: Normocephalic, atraumatic ENT: Moist mucous membranes, Bilateral TMs clear, airway widely open and patent with no pharyngeal erythema, no tonsillar edema or exudate. Uvula midline. No trismus or drooling. Respiratory: No respiratory distress, lungs clear bilaterally Cardio: Regular rate and rhythm Extremities: Moves extremities equally, no injuries noted Psych: Normal mood and affect Neuro: No focal neuro deficit Skin: Warm, dry, intact Constitutional Vital Signs, click to edit/add: Last Vital Signs Temp 98.1 F 03/29/23 21:10 Pulse 115 H 03/29/23 21:10 Resp 16 03/29/23 21:10 BP 154/83 H 03/29/23 21:10 Pulse Ox 97 03/29/23 21:10 O2 Del Method Room Air 03/29/23 21:10 Course Vital Signs Vital signs: Vital Signs Temperature 98.1 F 03/29/23 21:10 Pulse Rate 115 H 03/29/23 21:10 Respiratory Rate 16 03/29/23 21:10 Blood Pressure 154/83 H 03/29/23 21:10 Pulse Oximetry 97 03/29/23 21:10 Oxygen Delivery Method Room Air 03/29/23 21:10 Temperature 98.1 F 03/29/23 21:10 Pulse Rate 115 H 03/29/23 21:10 Respiratory Rate 16 03/29/23 21:10 Blood Pressure 154/83 H 03/29/23 21:10 Pulse Oximetry 97 03/29/23 21:10 Oxygen Delivery Method Room Air 03/29/23 21:10 MDM - URI/Sore Throat Medical Records Attestation: I reviewed the patient's medical records. Lab Data Attestation: I reviewed the patient's lab results. Labs: Lab Results 03/29/23 Range/Units 21:15 Streptococcus Screen Negative Discharge Plan Discharge Chief Complaint: Upper Respiratory Infection Clinical Impression: Pharyngitis Patient Disposition: Home, Self-Care Time of Disposition Decision: 21:41 Condition: Good Prescriptions / Home Meds: No Action famotidine [Pepcid] 20 mg tablet 20 mg PO DAILY Qty: 30 0RF albuterol sulfate 2.5 mg /3 mL (0.083 %) solution for nebulization 2.5 mg inhalation Q8H PRN (Reason: shortness of breath or wheezing) Instructions: Pharyngitis (ED) Additional Instructions: pt ambulated with steady gait out of er, voices understanding to discharge instructions and medication ordered Stand Alone Forms: Portal Instructions Referrals: Juan José Mederos MD [Primary Care Provider] - 1 week Discharge Date/Time: 03/29/23 21:55
[2023-03-29 21:39] LABS: Internal Control Within Normal Limits; Strep A Antigen Screen Negative
[2023-03-29] MEDS: DEXAMETHASONE SOD PHOS 10 MG/ML VIAL PO (21:52)
== END 2023-03-29 21:55 | disposition home or self-care (01) ==
PROVIDERS: Physician Assistant; Emergency Provider Internal Medicine; PCP Family Medicine
DX: J02.9 Acute pharyngitis, unspecified (principal); R62.50 Unspecified lack of expected normal physiological development in childhood
CPT/HCPCS: 87070; 87804; 87811; 87880; 99283; J1100

== ENCOUNTER 2023-04-28 18:58 | Emergency (ER) | payer SELFPAY ==
--- OUTSIDE RECORDS SUMMARY | 2023-04-28 19:06 | XMS_ITS | CCD ---
Author Organization [facility] Care Team Providers Care Service Agent Name Role Phone ANA MARTIN Unavailable Unavailable JUAN JOSÉ SUMNER Unavailable Yanira huang Nadereoswaldo, Juan José Francisco Unavailable Unavailabl e NADERER, DR JUAN JOSÉ Moe Admitting Unavailable NADERER, DR JUAN JOSÉ Moe Attending Unavailable ZIEBER, DR ERVIN Browning Consulting Unavailable NADERER, DR JUAN JOSÉ Moe Consulting Unavailable SAMSA, PRANAV Admitting Unavailable SAMSA, PRANAV Attending Unavailable SAMSA, PRANAV Consulting Unavailable SAMSA, PRANAV Admitting Unavailable SAMSA, PRANAV Attending Unavailable TAISHA, DR JUAN JOSÉ Moe Primary Care Unavailable Aryan Vera Unavailable Aryan Vera Attending Unavailable Aryan Vera Admitting Unavailable Juan José Sumner Primary Care Unavailable JUAN JOSÉ SUMNER Attending Unavailable Juan José Sumner MD Primary Care Provider Allergies Allergy Classification Reported Allergen(s) Allergy Type Date of Onset Reaction(s) Facility (8 sources) cefotaxime; Translations: [Claforan] Drug Allergy swelled up [facility] Repository (1 source) Cefotaxime Drug Allergy 3 [facility] Repository (1 source) Cefotaxime Drug Allergy 4 [facility] Healthcare (1 source) Cephalosporins (Antibiotic) Propensity to adverse reactions 4 [facility] Healthcare Medications Current Medications Medication Drug Class(es) Dates Sig (Normalized) Sig (Original) [id number] 200 actuat albuterol 0.09 mg/actuat metered dose [...] tablet (8 sources) Serotonin Reuptake Inhibitor Start: 4 take 1 tablet by mouth in the [...] : DR. PRANAV RICE . Admission #: [id number] Family : Order #: [id number] CLICK HERE TO VIEW EXAM ECHOCARDIOGRAM REPORT [...] Hernandez M.D. on 10/04/2021 at 15:01 Normal [facility] XR ABD FLAT_UPon 11-16-2020 XR ABD [...] ERVIN YOUSIF Date: 2020-11-16 06:42 Normal [facility] Otolaryngology Consultationo n 03-23-2017 Otolaryngology Consultation [...] Ana Martin MD 03/23/17 13:29 EST Normal [facility] Provider Letteron 03-23-2017 Provider Letter Juan José [id number] [place], [place] [address]Nd: Vito EstepDate of Visit: 03/23/2017Dear Juan José Sumner,Thank you for the referral of your patient to our office.Let me know if you have any questions or concerns.Sincerely,Cintia Feldman Providers:The following document(s) were included in the letter:March 23, 2017 13:27:00 EST - (03/23/2017) Consult Note Normal [facility] Vital Signs Date Time Vital Sign Value Performing Clinician Facility 10-25-2021 10:45-0400 Body height 182.88 cm Aryan Vera Other [facility] Other 10-25-2021 10:45-0400 Body mass index (BMI) [Ratio] 35.39 kg/m2 Aryan Vera Other [facility] Other 10-25-2021 10:45-0400 Body weight 118.39 kg Aryan Vera Other [facility] Other 10-25-2021 10:45-0400 Diastolic blood pressure 95 mm[Hg] Aryan Vera Other [facility] Other 10-25-2021 10:45-0400 Systolic blood pressure 139 mm[Hg] Aryan Vera Other [facility] Other Encounters Encounter Date Encounter Type Care Provider Facility Start: 03-19-2023 Orders Only Juan José Curry Work Phone: [facility] Comment on above: Mild persistent asth ma, uncomplicated (CMS/HCC) (Primary Dx) Start: 02-23-2023 End: 02-23-2023 ambulatory JUAN JOSÉ SUMNER Not Available Start: 01-13-2023 End: 01-13-2023 ambulatory Aryan Vera Other [facility] Other Start: 01-13-2023 Telephone encounter [facility] Start: 11-18-2022 End: 11-18-2022 ambulatory Aryan Vera Other [facility] Other Start: 11-18-2022 Telephone encounter [facility] Start: 11-05-2022 End: 11-05-2022 ambulatory Aryan Vera Other [facility] Other Start: 09-27-2023 Telephone encounter Aryan Ditty [facility] Start: 10-31-2022 End: 10-31-2022 ambulatory Aryan Vera Other [facility] Other Start: 10-31-2022 Telephone encounter Aryan TITUS [facility] Start: 10-28-2022 End: 10-28-2022 ambulatory Aryan Vera Facility:[facility] Start: 08-01-2022 End: 08-01-2022 ambulatory Aryan Vera Other [facility] Other Start: 08-01-2022 Telephone encounter Aryan TITUS [facility] Start: 11-13-2021 End: 11-13-2021 ambulatory Aryan Vera Other [facility] Other Start: 11-13-2021 Telephone encounter Aryan [facility] Start: 10-25-2021 End: 10-25-2021 ambulatory Aryan Vera Other [facility] Other Start: 10-25-2021 [facility] visit new patient Aryan Vera [facility] Start: 10-23-2021 ambulatory PRANAV [facility] Facility:[facility] Start: 10-04-2021 End: 10-05-2021 ambulatory PRANAV RICE Facility:[facility] Start: 11-15-2020 End: 11-16-[address] JUAN JOSÉ SUMNER Facility:[facility] Start: 03-23-2017 End: 03-24-2017 Ambulatory ANA MARTIN Facility:[facility] Plan of Treatment Date Care Activity Detail Author Start: 05-26-2023 End: 05-26-2023 Patient encounter procedure 05/26/2023 1:00 PM EDT Office Visit [facility] [address] [place] [address] Juan José Sumner MD [address] [place] [address] [facility] Start: 10-10-2022 Influenza vaccination Influenza Vacc ine (#1) [facility] Payers Date Payer Category Payer Self-pay 2022 Medicaid [id number] 2022 Medicaid [place] [id number] 2022-Present [address] [place] [address] [id number] 2013 Unknown 1998 Unknown [id number] 1998 Unknown [id number] 1998 Unknown [id number] 1998 Unknown [id number] 1959 Unknown [id number] 1959 Unknown [id number] 1959 Unknown [id number] Medicaid [id number] Unknown [id number] Social History Date Type Detail Facility Unknown if ever smoked [facility] Other Start: 01-27-2023 End: 02-23-2023 Sex Assigned At [facility] Start: 02-23-2023 Tobacco smoking status NHIS Never smoked tobacco [facility] Start: 02-23-2023 Tobacco use and exposure Smokeless tobacco non-user [facility] Start: 01-27-2023 End: 02-23-2023 History of Social function [facility] Start: 2000 Sex Assigned At Not on file [facility] Evaluation note 10-25-2021 Note Date & Type Note Facility 10-25-2021 Evaluation note Encounter Date Diagnosis Assessment Notes Oct, GERD (gastroeso phageal reflux disease) (ICD-10 - K21.9) CONTINUE PRILOSEC OT 20 MG DAILY CONTINUE PANTOPRAZOLE 20 MG TWICE A DAY [facility] Other Evaluation note Note Date & Type Note Facility Evaluation note No Information [facility] Other Evaluation note Note Date & Type [...] tonsillectomy 2002 Hospitalization History RSV as an [facility] Other Reason for visit Narrative Note Date & Type Note Facility Reason for visit Narrative PATIENT HERE AT THE REQUEST OF DR PRANAV RICE FOR EVALUATION & TREATMENT OF GERD [facility] Other Summary Purpose Family History No Family [...] section and content) DATE CREATED AUTHOR 08/03/2017 [facility] DATE CREATED AUTHOR AUTHOR'S ORGANIZ ATION 10/21/2021 [facility] DATE CREATED AUTHOR AUTHOR'S ORGANIZ ATION 11/10/2022 [facility] DATE CREATED AUTHOR AUTHOR'S ORGANIZ ATION 02/24/2023 [facility] Specialists EPIC REASON FOR VISIT (unrecogniz ed section and content) ClinicalClinicalorders per d octorDEXILANT NOT WORKINGRX DENIAL/NEW RXClinical Acute Medicine Care Teams (unrecognized sec tion and content) Service Agent Relationship Specialty Start Date End Date Juan [...] BE BASED ON THE PRIMARY CLINICAL RECORDS. [facility] [employer] [facility] provides no warranty or guarantee of the accuracy or completeness of information in this document.
[2023-04-28 19:08] VITALS: BP 139/94; PULSE 114; RESP 22; TEMP 37.3; O2SAT 99; BMI 32.5
[2023-04-28 19:21] VITALS: O2SAT 100
--- NOTE | 2023-04-28 19:23 | ED.GENADUL1 ---
HPI - General Adult General Chief complaint: Shortness of Breath/Dyspnea Stated complaint: Sore Throat Time Seen by Provider: 04/28/23 19:06 Source: patient Mode of arrival: walk-in Limitations: no limitations History of Present Illness HPI narrative: Patient complains of throat/upper airway tightness. He has asthma. He had a similar episode about a month ago and got a steroid different than prednisone and that really worked. No fever or chills. Denies ear pain, nasal congestion, fatigue, muscle aches or flu like symptoms. No GI or symptoms. He took some prednisone earlier without any improvement just like I did last time . Related Data Home Medications ?Medication ?Instructions ?Recorded ?Confirmed albuterol sulfate 2.5 mg/3 mL 2.5 mg inhalation Q8H PRN 03/29/23 04/28/23 (0.083 %) solution for nebulization shortness of breath or wheezing budesonide-formoterol HFA 160 inhalation 04/28/23 mcg-4.5 mcg/actuation aerosol inhaler (Symbicort) ipratropium 0.5 mg-albuterol 3 mg ml inhalation 04/28/23 (2.5 mg base)/3 mL nebulization soln Previous Rx's ?Medication ?Instructions ?Recorded famotidine 20 mg tablet (Pepcid) 20 mg PO DAILY #30 tabs 11/07/22 Allergies Allergy/AdvReac Type Severity Reaction Status Date / Time cefotaxime [From Claforan] AdvReac Unknown Verified 04/28/23 19:12 [facility] Social History Smoking status: Never smoker Exam Narrative Exam Narrative: Nurses notes and vital signs reviewed and patient is not hypoxic. Afebrile General: Well-appearing and in no apparent distress. Skin: Warm, dry, no pallor noted. No rash. Head: Normocephalic, atraumatic. Neck: Supple, non-tender. No cervical lymphadenopathy Eye: Pupils are equal, round and EOMI. No scleral icterus. Ears, Nose, Mouth, and Throat: TM are clear, Minimal posterior oropharynx erythema Without exudate. No nasal mucosal hypertrophy, uvula is mid-line. Oral mucosa is moist Cardiovascular: Regular Rate and Rhythm without murmur, gallop or rub. Respiratory: No accessory muscle use or respiratory distress. Lungs are clear to auscultation, no wheezing, rales or rhonchi Musculoskeletal: normal ROM Neurological: A&O x4. No cranial nerve dysfunction observed. No truncal ataxia. Moves all extremities. Sensation intact. Psychiatric: Cooperative and interactive. Normal mood and affect. Constitutional Vital Signs, click to edit/add: Last Vital Signs Temp 99.2 F 04/28/23 19:08 Pulse 114 H 04/28/23 19:08 Resp 22 04/28/23 19:08 BP 139/94 H 04/28/23 19:08 Pulse Ox 100 04/28/23 19:21 O2 Del Method Room Air 04/28/23 19:21 Course Vital Signs Vital signs: Vital Signs Temperature 99.2 F 04/28/23 19:08 Pulse Rate 114 H 04/28/23 19:08 Respiratory Rate 22 04/28/23 19:08 Blood Pressure 139/94 H 04/28/23 19:08 Pulse Oximetry 99 04/28/23 19:08 Oxygen Delivery Method Room Air 04/28/23 19:08 Temperature 99.2 F 04/28/23 19:08 Pulse Rate 114 H 04/28/23 19:08 Respiratory Rate 22 04/28/23 19:08 Blood Pressure 139/94 H 04/28/23 19:08 Pulse Oximetry 100 04/28/23 19:21 Oxygen Delivery Method Room Air 04/28/23 19:21 Medical Decision Making MDM Narrative Medical decision making narrative: Strep screen obtained. He was ordered to be given IM Solu-Medrol. He also refused to get a COVID or influenza swab as he does not like things in his nose. He agreed to take decadron orally. Patient felt better and wanted to be discharged home. His strep screen was negative. He was informed of result and discharged home - encouraged to return to the ED if symptoms return. Lab Data Lab results reviewed: Yes I reviewed the patient's lab results Labs: Lab Results 04/28/23 Range/Units 19:18 Streptococcus Screen Negative Discharge Plan Discharge Stand Alone Forms: Portal Instructions Chief Complaint: Shortness of Breath/Dyspnea Clinical Impression: Foreign body sensation in throat, Pharyngitis Patient Disposition: Home, Self-Care Time of Disposition Decision: 20:03 Prescriptions / Home Meds: No Action famotidine [Pepcid] 20 mg tablet 20 mg PO DAILY Qty: 30 0RF albuterol sulfate 2.5 mg /3 mL (0.083 %) solution for nebulization 2.5 mg inhalation Q8H PRN (Reason: shortness of breath or wheezing) ipratropium-albuterol 0.5 mg-3 mg(2.5 mg base)/3 mL solution for nebulization INHALATION budesonide-formoterol [Symbicort] 160-4.5 mcg/actuation HFA aerosol inhaler INHALATION Print Language: Chinese Instructions: Pharyngitis (ED) Referrals: Juan José Mederos MD [Primary Care Provider] - 1 week
[2023-04-28 19:43] LABS: Internal Control Within Normal Limits; Strep A Antigen Screen Negative
[2023-04-28] MEDS: DEXAMETHASONE SOD PHOS 10 MG/ML VIAL PO (19:51)
== END 2023-04-28 20:17 | disposition home or self-care (01) ==
PROVIDERS: Emergency Provider Emergency Medicine; PCP Family Medicine
DX: J02.9 Acute pharyngitis, unspecified (principal); R09.A2 Foreign body sensation, throat; J45.909 Unspecified asthma, uncomplicated; Z79.899 Other long term (current) drug therapy
CPT/HCPCS: 87070; 87880; 99284; J1100

== ENCOUNTER 2023-08-15 19:14 | Emergency (ER) | payer SELFPAY ==
[2023-08-15 19:19] VITALS: BP 134/81; PULSE 98; TEMP 36.3; O2SAT 100; BMI 31.2
--- OUTSIDE RECORDS SUMMARY | 2023-08-15 19:21 | XMS_ITS | CCD ---
Author Organization [facility]form ion [facility] Care Team Providers Care Transit Worker Name Role Phone ANA MARTIN Unavailable Unavailable JUAN JOSÉ SUMNER Unavailable Unavailabl e Naderer, Juan José Francisco Unavailable Unavailabl e NADERER, DR JUAN JOSÉ Moe Admitting Unavailable NADERER, DR JUAN JOSÉ Moe Attending Unavailable ZIEBER, DR ERVIN Browning Consulting Unavailable NADERER, DR JUAN JOSÉ Moe Consulting Unavailable SAMSA, PRANAV Admitting Unavailable SAMSA, PRANAV Attending Unavailable SAMSA, PRANAV Consulting Unavailable SAMSA, PRANAV Admitting Unavailable SAMSA, PRANAV Attending Unavailable NADHOSEA, DR JUAN JOSÉ Moe Primary Care Unavailable Aryan Vera Unavailable Aryan Vera Attending Unavailable Aryan Vera Admitting Unavailable Juan José Sumner Primary Care Unavailable Juan José Sumner MD Primary Care Provider JUAN JOSÉ SUMNER Attending Unavailable TAISHA, JUAN JOSÉ Attending Unavailable TAISHA, JUAN JOSÉ Attending Unavailable Allergies Allergy Classification Reported Allergen(s) Allergy Type Date of Onset Reaction(s) Facility (8 sources) cefotaxime; Translations: [Claforan] Drug Allergy swelled up [facility] Repository (1 source) Cefotaxime Drug Allergy 3 [facility] Repository (1 source) Cefotaxime Drug Allergy 4 [facility] Healthcare (1 source) Cephalosporins (Antibiotic) Propensity to adverse reactions 4 [facility] Healthcare Medications Current Medications Medication Drug Class(es) Dates Sig (Normalized) Sig (Original) [id number] 200 actuat albuterol 0.09 mg/actuat metered dose inhaler (10 sources) beta2-Adrenergic Agonist Start: 02-08-2024 take 2 puff(s) by inhalation every four [...] : DR. PRANAV RICE . Admission #: [id number] Family : Order #: [id number] CLICK HERE TO VIEW EXAM ECHOCARDIOGRAM REPORT [...] Hernandez M.D. on 10/04/2021 at 15:01 Normal [facility] XR ABD FLAT_UPon 10-08-2021 XR ABD FLAT_UP EXAMINATION: XR ABD FLAT_UP [...] ERVIN YOUSIF Date: 2020-11-16 06:42 Normal [facility] Otolaryngology Consultationo n 03-23-2017 Otolaryngology Consultation [...] No active inpatient medications Prescriptions No active PrescriptionsAllefe Law (Rash)Social History Alcohol Never Substance Abuse Denies All Tobacco Never smokerFamily History Cancer: Grandfather (P).Lab Results Microbiology No qualifying data available.Electronical ly signed by Ana Martin MD 03/23/17 13:29 EST Normal [facility] Provider Letteron 03-23-2017 Provider Letter Juan José [id number] [place], [place] [address]Fh: Vito Cabreraate of Visit: 03/23/2017Dear Juan José Sumner,Thank you for the referral of your patient to our office.Let me know if you have any questions or concerns.Sincerely,Cintia Feldman Providers:The following document(s) were included in the letter:March 23, 2017 13:27:00 EST - (03/23/2017) Consult Note Normal [facility] Vital Signs Date Time Vital Sign Value Performing Clinician Facility 10-25-2021 10:45-0400 Body height 182.88 cm Aryan Vera Other [facility] Other 10-25-2021 10:45-0400 Body mass index (BMI) [Ratio] 35.39 kg/m2 Aryan Vera Other [facility] Other 10-25-2021 10:45-0400 Body weight 118.39 kg Aryan Vera Other [facility] Other 10-25-2021 10:45-0400 Diastolic blood pressure 95 mm[Hg] Aryan Vera Other [facility] Other 10-25-2021 10:45-0400 Systolic blood pressure 139 mm[Hg] Aryan Vera Other [facility] Other Encounters Encounter Date Encounter Type Care Provider Facility Start: 07-28-2023 End: 07-28-2023 ambulatory JUAN JOSÉ NADERER Not Available Start: 05-07-2023 End: 05-07-2023 ambulatory JUAN JOSÉ NADERER Not Available Start: 03-19-2023 Orders Only Juan José Sumner M D Work Phone: [facility] Comment on above: Mild persistent asth ma, uncomplicated (CMS/HCC) (Primary Dx) Start: 02-23-2023 End: 02-23-2023 ambulatory JUAN JOSÉ NADERER Not Available Start: 01-13-2023 End: 01-13-2023 ambulatory Aryan Vera Other [facility] Other Start: 01-13-2023 Telephone encounter A[facility] Start: 11-18-2022 End: 11-18-2022 ambulatory Aryan Vera Other [facility] Other Start: 11-18-2022 Telephone encounter Aryan Ditty [facility] Start: 11-05-2022 End: 11-05-2022 ambulatory Aryan Vera Other [facility] Other Start: 11-05-2022 Telephone encounter Aryan TITUS [facility] Start: 10-31-2022 End: 10-31-2022 ambulatory Aryan Vera Other [facility] Other Start: 10-31-2022 Telephone encounter Aryan TITUS [facility] Start: 10-28-2022 End: 10-28-2022 ambulatory Aryan Laurentdann Facility:[facility] Start: 08-01-2022 End: 08-01-2022 ambulatory Aryan Vera Other [facility] Other Start: 08-01-2022 Telephone encounter Aryan Damarireagandann [facility] Start: 11-13-2021 End: 11-13-2021 ambulatory Aryan Vera Other [facility] Other Start: 11-13-2021 Telephone encounter Aryan Wetzelreagandann [facility] Start: 10-25-2021 End: 10-25-2021 ambulatory Aryan Vera Other [facility] Other Start: 10-25-2021 [facility] visit new patient [...] 05/26/2023 1:00 PM EDT Office Visit [facility] [address] [place] [id number] Juan José Sumner MD [address] [place] [id number] [facility] Start: 10-10-2022 Influenza vaccination Influenza Vacc ine (#1) [facility] Payers Date Payer Category Payer Self-pay 2022 Medicaid [place] [employer] [id number] 2022-Present [address] [place] [address] [id number] 2013 Unknown 1998 Unknown [id number] 1998 Unknown [id number] 1998 Unknown [id number] 1998 Unknown [id number] 1998 Unknown [id number] 1998 Unknown [id number] 1959 Unknown [id number] 1959 Unknown [id number] 1959 Unknown [id number] Medicaid [id number] Medicaid [id number] Unknown [id number] Social History Date Type Detail Facility Unknown if ever smoked [facility] Other Start: 01-27-2023 End: 02-23-2023 Sex Assigned [...] CONTINUE PANTOPRAZOLE 20 MG TWICE A DAY [facility] Other Evaluation note Note Date & Type Note Facility Evaluation note No Information [facility] Other Evaluation note Note Date & Type [...] 2002 Hospitalization History RSV as an infant [facility] Other Reason for visit Narrative Note Date & Type Note Facility Reason for visit Narrative PATIENT HERE AT THE REQUEST OF DR PRANAV RICE FOR EVALUATION & TREATMENT OF GERD [facility] Other Summary Purpose Family History No Family [...] section and content) DATE CREATED AUTHOR 08/03/2017 [facility] DATE CREATED AUTHOR AUTHOR'S ORGANIZ ATION 10/21/2021 [facility] DATE CREATED AUTHOR AUTHOR'S ORGANIZ ATION 11/10/2022 [facility] DATE CREATED AUTHOR AUTHOR'S ORGANIZ ATION 07/30/2023 [facility] dical Specialists EPIC REASON FOR VISIT (unrecogniz ed section and content) ClinicalClinicalorders per d octorDEXILANT NOT WORKINGRX DENIAL/NEW RXClinical Acute Medicine Care Teams (unrecognized sec tion and content) Transit Worker Relationship Specialty Start Date End Date [...] BE BASED ON THE PRIMARY CLINICAL RECORDS. [employer] provides no warranty or guarantee of the accuracy or completeness of information in this document.
--- NOTE | 2023-08-15 19:48 | PC.NURSE ---
PT STATES NUMBNESS AND TINGLING TO RIGHT LOWER ARM AND HAND X 3 WEEKS. STATES WAS SEEN BY PCP AND TOLD TO MONITOR. PT STATES NOT GETTING BETTER. DENIES INJURY OR REPETITIVE MOVEMENT
== END 2023-08-15 20:17 | disposition left against medical advice (07) ==
PROVIDERS: Emergency Provider Emergency Medicine; PCP Family Medicine
DX: Z53.21 Procedure and treatment not carried out due to patient leaving prior to being seen by health care provider (principal)

== ENCOUNTER 2023-08-29 13:49 | Emergency (ER) | payer SELFPAY ==
[2023-08-29 13:51] VITALS: BP 148/96; PULSE 110; TEMP 36.9; O2SAT 98; BMI 33.5
--- OUTSIDE RECORDS SUMMARY | 2023-08-29 13:57 | XMS_ITS | CCD ---
Author Organization [facility] Inform ion Partnership [facility] Care Team Providers Care Supervisory Clerk Name Role Phone ANA MARTIN Unavailable Unavailable JUAN JOSÉ SUMNER Unavailable Unavailabl e Naderer, Juan José Francisco Unavailable Unavailabl e NADERER, DR JUNA JOSÉ Moe Admitting Unavailable NADERER, DR JUAN [...] cefotaxime; Translations: [Claforan] Drug Allergy swelled up [facility] Repository (1 source) Cefotaxime Drug Allergy 3 [facility] Repository (1 source) Cefotaxime Drug Allergy [address] [facility] Healthcare (1 source) Cephalosporins (Antibiotic) Propensity to adverse reactions 4 [facility] Healthcare Medications Current Medications Medication Drug Class(es) Dates Sig (Normalized) Sig (Original) [id number] 200 actuat albuterol 0.09 mg/actuat metered dose [...] : DR. PRANAV RICE . Admission #: [id number] Family : Order #: [id number] CLICK HERE TO VIEW EXAM ECHOCARDIOGRAM REPORT [...] Hernandez M.D. on 10/04/2021 at 15:01 Normal [facility] XR ABD FLAT_UPon 10-08-2021 XR ABD FLAT_UP [...] ERVIN YOUSIF Date: 2020-11-16 06:42 Normal [facility] Otolaryngology Consultationo n 03-23-2017 Otolaryngology Consultation [...] Ana Martin MD 03/23/17 13:29 EST Normal [facility] Provider Letteron 03-23-2017 Provider Letter Juan José [id number] [place], [place] [address]Xt: Vito Cabreraate of Visit: 03/23/2017Dear Juan José Sumner,Thank you for the referral of your patient to our office.Let me know if you have any questions or concerns.Sincerely,Cintia Feldman Providers:The following document(s) were included in the letter:March 23, 2017 13:27:00 EST - (03/23/2017) Consult Note Normal [facility] Vital Signs Date Time Vital Sign Value Performing Clinician Facility 10-25-2021 10:45-0400 Body height 182.88 cm Aryan Vera Other [facility] Other 10-25-2021 10:45-0400 Body mass index (BMI) [Ratio] 35.39 kg/m2 Aryan Vera Other [facility] Other 10-25-2021 10:45-0400 Body weight 118.39 kg Aryan Vera Other [facility] Other 10-25-2021 10:45-0400 Diastolic blood pressure 95 mm[Hg] Aryan Vera Other [facility] Other 10-25-2021 10:45-0400 Systolic blood pressure 139 mm[Hg] Aryan Vera Other [facility] Other Encounters Encounter Date Encounter Type Care Provider Facility Start: 07-28-2023 End: 07-28-2023 ambulatory JUAN JOSÉ NADERER Not Available Start: 05-07-2023 End: 05-07-2023 ambulatory JUAN JOSÉ NADERER Not Available Start: 03-19-2023 Orders Only Juan José Sumner M D Work Phone: [facility] Comment on above: Mild persistent asth ma, uncomplicated (CMS/HCC) (Primary Dx) Start: 02-23-2023 End: 02-23-2023 ambulatory JUAN JOSÉ NADERER Not Available Start: 01-13-2023 End: 01-13-2023 ambulatory Aryan Vera Other [facility] Other Start: 01-13-2023 Telephone encounter Aryan [facility] Start: 11-18-2022 End: 11-18-2022 ambulatory Aryan Vera Other [facility] Other Start: 11-18-2022 Telephone encounter Aryan Ditty [facility] Start: 11-05-2022 End: 11-05-2022 ambulatory Aryan Vera Other [facility] Other Start: 11-05-2022 Telephone encounter Aryan [facility] Start: 10-31-2022 End: 10-31-2022 ambulatory Aryan Vera Other [facility] Other Start: 10-31-2022 Telephone encounter Aryan [facility] Start: 10-28-2022 End: 10-28-2022 ambulatory Aryan Laurentdann Facility:[facility] Start: 08-01-2022 End: 08-01-2022 ambulatory Aryan Vera Other [facility] Other Start: 08-01-2022 Telephone encounter Aryan Damarireagandann [facility] Start: 11-13-2021 End: 11-13-2021 ambulatory Aryan Vera Other [facility] Other Start: 11-13-2021 Telephone encounter Aryan Wetzelreagandann [facility] Start: 10-25-2021 End: 10-25-2021 ambulatory Aryan Vera Other [facility] Other Start: 10-25-2021 [facility] visit new patient [...] Visit [facility] [address] [place] [id number] Juan José Sumner MD [address] [place] [id number] [facility] Start: 10-10-2022 Influenza vaccination Influenza Vacc ine (#1) [facility] Payers Date Payer Category Payer Self-pay 2022 Medicaid [employer] [employer] [place] [id number] 2022-Present [address] [place] [address] [id number] 2013 Unknown 1998 Unknown [id number] 1998 Unknown [id number] 1998 Unknown [id number] 1998 Unknown [id number] 1998 Unknown [id number] 1998 Unknown [id number] 1959 Unknown [id number] 1959 Unknown [id number] 1959 Unknown [id number] Medicaid [id number] Medicaid [id number] Unknown [id number] Social History Date Type Detail Facility Unknown if ever smoked [facility] Other Start: 01-27-2023 End: 02-23-2023 Sex Assigned [...] CONTINUE PANTOPRAZOLE 20 MG TWICE A DAY [facility] Other Evaluation note Note Date & Type Note Facility Evaluation note No Information [employer] Other Evaluation note Note Date & Type [...] tonsillectomy 2002 Hospitalization History [facility] as an [facility] Other Reason for visit Narrative Note Date & Type Note Facility Reason for visit Narrative PATIENT HERE AT THE REQUEST OF DR PRANAV RICE FOR EVALUATION & TREATMENT OF GERD [facility] Other Summary Purpose Family History No Family [...] section and content) DATE CREATED AUTHOR 08/03/2017 [facility] DATE CREATED AUTHOR AUTHOR'S ORGANIZ ATION 10/21/2021 [facility] DATE CREATED AUTHOR AUTHOR'S ORGANIZ ATION 11/10/2022 [facility] DATE CREATED AUTHOR AUTHOR'S ORGANIZ ATION 07/30/2023 [facility] EPIC REASON FOR VISIT (unrecogniz ed section and content) ClinicalClinicalorders per d octorDEXILANT NOT WORKINGRX DENIAL/NEW RXClinical Acute Medicine Care Teams (unrecognized sec tion and content) Supervisory Clerk Relationship Specialty Start Date End Date Juan [...] BE BASED ON THE PRIMARY CLINICAL RECORDS. [employer] provides no warranty or guarantee of the accuracy or completeness of information in this document.
--- NOTE | 2023-08-29 14:20 | ED_ITS ---
HPI HPI - General Adult General Chief complaint: Extremity Injury, Upper Stated complaint: UPPER EXTREMITY PAIN, NUMBNESS Time Seen by Provider: 08/29/23 13:57 Source: patient Mode of arrival: walk-in Limitations: no limitations History of Present Illness HPI narrative: The patient is coming to the ER with a right elbow pain mostly at the deltoid area of the right arm, this been going on at least for the last few days, the patient have a history of mental disability and right now there is no history of fall or trauma The pain is there sometimes when he is moving his elbow and he mentioned that he recently started playing the [employer] and this pain started after the Related Data Home Medications ?Medication ?Instructions ?Recorded ?Confirmed albuterol sulfate 2.5 mg/3 mL 2.5 mg inhalation Q8H PRN 03/29/23 08/15/23 (0.083 %) solution for nebulization shortness of breath or wheezing budesonide-formoterol HFA 160 1 inh inhalation Q12H 04/28/23 08/15/23 mcg-4.5 mcg/actuation aerosol inhaler (Symbicort) ipratropium 0.5 mg-albuterol 3 mg ml inhalation 04/28/23 (2.5 mg base)/3 mL nebulization soln Previous Rx's ?Medication ?Instructions ?Recorded famotidine 20 mg tablet (Pepcid) 20 mg PO DAILY #30 tabs 11/07/22 ibuprofen 600 mg tablet 600 mg PO Q8H PRN pain #10 tabs 08/29/23 Allergies Allergy/AdvReac Type Severity Reaction Status Date / Time cefotaxime [From Claforan] AdvReac Unknown Unknown Verified 08/15/23 19:19 Opioid HPI Opioid Management Most Recent Opioid Data: Last Pain Scale 3 01/30/23 14:24 Last ED Pain Assessment 08/29/23 13:56 Review of Systems ROS Status of ROS 10 or more systems reviewed and unremark able except as noted in history and below PFSH PFSH Social History Smoking status: Never smoker Exam Narrative Exam Narrative: Nurses notes and vital signs reviewed and patient is not hypoxic. General: Well-appearing and in no apparent distress. Skin: Warm, dry, no pallor noted. No rash. Head: Normocephalic, atraumatic. Neck: Supple, non-tender. Eye: Pupils are equal, round and EOMI. No scleral icterus. Ears, Nose, Mouth, and Throat: TM are clear, no nasal mucosal hypertrophy. Oral mucosa is moist, no posterior oropharynx erythema, uvula is mid-line Cardiovascular: Regular Rate and Rhythm without murmur, gallop or rub. Respiratory: No accessory muscle use or respiratory distress. Lungs are clear to auscultation, no wheezing, rales or rhonchi Chest Wall: no tenderness Back: No midline thoracic or lumbar vertebral tenderness. No CVA tenderness Musculoskeletal: normal ROM, no calf or popliteal tenderness, no lower extremity edema/swelling but there is subjective tenderness upon palpation of the distal biceps and mild GI: Abdomen is soft, non-distended. Normal bowel sounds. No masses appreciated. No tenderness to palpation. No rebound, guarding, or rigidity noted. Neurological: A&O x4. No cranial nerve dysfunction observed. No truncal ataxia. Moves all extremities. Sensation intact. Psychiatric: Cooperative and interactive. Normal mood and affect. Constitutional Vital Signs, click to edit/add: Last Vital Signs Temp 98.5 F 08/29/23 13:51 Pulse 110 H 08/29/23 13:51 Resp 18 08/29/23 13:51 BP 148/96 H 08/29/23 13:51 Pulse Ox 98 08/29/23 13:51 O2 Del Method Room Air 08/29/23 13:51 Course Vital Signs Vital signs: Vital Signs Temperature 98.5 F 08/29/23 13:51 Pulse Rate 110 H 08/29/23 13:51 Respiratory Rate 18 08/29/23 13:51 Blood Pressure 148/96 H 08/29/23 13:51 Pulse Oximetry 98 08/29/23 13:51 Oxygen Delivery Method Room Air 08/29/23 13:51 Temperature 98.5 F 08/29/23 13:51 Pulse Rate 110 H 08/29/23 13:51 Respiratory Rate 18 08/29/23 13:51 Blood Pressure 148/96 H 08/29/23 13:51 Pulse Oximetry 98 08/29/23 13:51 Oxygen Delivery Method Room Air 08/29/23 13:51 Medical Decision Making MDM Narrative Medical decision making narrative: Patient presented with a possible mild sprain of the right elbow he will be treated right now with ibuprofen as well as Rell wrap The patient is to follow up with primary care physician in next 2-3 days or to return to the emergency department should any of the signs or symptoms worsen or new symptoms develop. The patient agrees with the following Diagnosis and Treatment plan and the patient will be discharged home. Discharge Plan Discharge Stand Alone Forms: Portal Instructions Chief Complaint: Extremity Injury, Upper Clinical Impression: Elbow sprain Qualifiers: Encounter type: initial encounter Laterality: right Qualified Code(s): S53.401A - Unspecified sprain of right elbow, initial encounter Patient Disposition: Home, Self-Care Time of Disposition Decision: 14:19 Condition: Good Prescriptions / Home Meds: New ibuprofen 600 mg tablet 600 mg PO Q8H PRN (Reason: pain) Qty: 10 0RF No Action famotidine [Pepcid] 20 mg tablet 20 mg PO DAILY Qty: 30 0RF albuterol sulfate 2.5 mg /3 mL (0.083 %) solution for nebulization 2.5 mg inhalation Q8H PRN (Reason: shortness of breath or wheezing) ipratropium-albuterol 0.5 mg-3 mg(2.5 mg base)/3 mL solution for nebulization INHALATION budesonide-formoterol [Symbicort] 160-4.5 mcg/actuation HFA aerosol inhaler 1 inh INHALATION Q12H Print Language: Brazilian Instructions: Elbow Sprain (ED) Referrals: Juan José Mederos MD [Primary Care Provider] - 1 week
[2023-08-29] MEDS: IBUPROFEN 600 MG TABLET PO (14:33)
== END 2023-08-29 14:36 | disposition home or self-care (01) ==
PROVIDERS: Emergency Provider Emergency Medicine; PCP Family Medicine
DX: S53.401A Unspecified sprain of right elbow, initial encounter (principal); X50.9XXA Other and unspecified overexertion or strenuous movements or postures, initial encounter
CPT/HCPCS: 99282

== ENCOUNTER 2023-10-13 12:33 | Emergency (ER) | payer SELFPAY ==
[2023-10-13] VITALS (13 sets, daily range): BP systolic 136–150; BP diastolic 90–93; PULSE 86–116; TEMP 37.1; O2SAT 95–100; BMI 33.9
--- NOTE | 2023-10-13 12:52 | ECG_ITS ---
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
--- NOTE | 2023-10-13 12:54 | ED_ITS ---
HPI - Chest Pain General Chief Complaint: Chest Pain Stated Complaint: IRREGULAR HEARTBEAT Time Seen by Provider: 10/13/23 12:43 Source: patient Mode of arrival: walk-in Limitations: no limitations History of Present Illness HPI narrative: The patient is coming to the ER with complaint of that his heart was racing and he is having irregular heartbeat that he has been having this feeling since last night, he mentioned that he was angry yesterday when this started he did not have a specific chest pain although the patient was not clear about that because sometimes he was a chest pressure or discomfort But he is denying any pain at the moment only complaining of heart racing, patient denies any other concerns except for the fact that he has a history of anxiety No cough no shortness of breath Related Data Home Medications ?Medication ?Instructions ?Recorded ?Confirmed albuterol sulfate 2.5 mg/3 mL 2.5 mg inhalation Q8H PRN 03/29/23 08/15/23 (0.083 %) solution for nebulization shortness of breath or wheezing budesonide-formoterol HFA 160 1 inh inhalation Q12H 04/28/23 08/15/23 mcg-4.5 mcg/actuation aerosol inhaler (Symbicort) ipratropium 0.5 mg-albuterol 3 mg ml inhalation 04/28/23 (2.5 mg base)/3 mL nebulization soln Previous Rx's ?Medication ?Instructions ?Recorded famotidine 20 mg tablet (Pepcid) 20 mg PO DAILY #30 tabs 11/07/22 ibuprofen 600 mg tablet 600 mg PO Q8H PRN pain #10 tabs 08/29/23 Allergies Allergy/AdvReac Type Severity Reaction Status Date / Time cefotaxime [From Claforan] AdvReac Unknown Unknown Verified 08/15/23 19:19 Review of Systems ROS Status of ROS 10 or more systems reviewed and unremark able except as noted in history and below PFSH PFSH Social History Smoking status: Never smoker Exam Narrative Exam Narrative: Nurses notes and vital signs reviewed and patient is not hypoxic. General: Well-appearing and in no apparent distress. Skin: Warm, dry, no pallor noted. No rash. Head: Normocephalic, atraumatic. Neck: Supple, non-tender. Eye: Pupils are equal, round and EOMI. No scleral icterus. Ears, Nose, Mouth, and Throat: TM are clear, no nasal mucosal hypertrophy. Oral mucosa is moist, no posterior oropharynx erythema, uvula is mid-line Cardiovascular: Regular Rate and Rhythm without murmur, gallop or rub. Respiratory: No accessory muscle use or respiratory distress. Lungs are clear to auscultation, no wheezing, rales or rhonchi Chest Wall: no tenderness Back: No midline thoracic or lumbar vertebral tenderness. No CVA tenderness Musculoskeletal: normal ROM, no calf or popliteal tenderness, no lower extremity edema/swelling GI: Abdomen is soft, non-distended. Normal bowel sounds. No masses appreciated. No tenderness to palpation. No rebound, guarding, or rigidity noted. Neurological: A&O x4. No cranial nerve dysfunction observed. No truncal ataxia. Moves all extremities. Sensation intact. Psychiatric: Cooperative and interactive. Normal mood and affect. Constitutional Vital Signs, click to edit/add: Last Vital Signs Temp 98.7 F 10/13/23 12:37 Pulse 97 H 10/13/23 14:10 Resp 17 10/13/23 14:10 BP 136/90 10/13/23 13:31 Pulse Ox 97 10/13/23 13:50 O2 Del Method Room Air 10/13/23 12:48 Course Vital Signs Vital signs: Vital Signs Temperature 98.7 F 10/13/23 12:37 Pulse Rate 100 H 10/13/23 12:37 Respiratory Rate 20 10/13/23 12:37 Blood Pressure 142/93 H 10/13/23 12:37 Pulse Oximetry 98 10/13/23 12:37 Oxygen Delivery Method Room Air 10/13/23 12:37 Temperature 98.7 F 10/13/23 12:37 Pulse Rate 97 H 10/13/23 14:10 Respiratory Rate 17 10/13/23 14:10 Blood Pressure 136/90 10/13/23 13:31 Pulse Oximetry 97 10/13/23 13:50 Oxygen Delivery Method Room Air 10/13/23 12:48 MDM - Chest Pain MDM Narrative Medical decision making narrative: The patient EKG showing sinus rhythm with a heart rate of [address] elevation or depression The patient CBC and chemistry showed no acute pathology Presentation is mostly secondary to an anxiety Lungs: Examination was clear and the patient was feeling much better after Vistaril The patient is to follow up with primary care physician in next 2-3 days or to return to the emergency department should any of the signs or symptoms worsen or new symptoms develop. The patient agrees with the following Diagnosis and Treatment plan and the patient will be discharged home. Lab Data Labs: Lab Results 10/13/23 10/13/23 Range/Units 12:58 13:35 WBC 7.6 (4.0-11.0) 10^3/uL RBC 5.30 (4.70-6.10) 10^6/uL Hgb 14.9 (14.0-18.0) g/dL Hct 43.4 (42.0-54.0) % MCV 81.9 (80.0-94.0) fL MCH 28.1 (25.9-34.0) pg MCHC 34.3 (29.9-35.2) g/dL RDW 13.8 (11.0-15.0) % Plt Count 381 (150-450) 10^3/uL MPV 11.7 (9.5-13.5) fL Neut % (Auto) 52.0 (43.0-75.0) % Lymph % (Auto) 38.5 (20.5-60.0) % [place] % (Auto) 7.0 (1.7-12.0) % Eos % (Auto) 0.9 (0.9-7.0) % Baso % (Auto) 1.1 (0.2-2.0) % Neut # (Auto) 3.9 (1.4-6.5) 10^3/uL Lymph # (Auto) 2.9 (1.2-3.8) 10^3/uL [place] # (Auto) 0.5 (0.3-0.8) 10^3/uL Eos # (Auto) 0.1 (0.0-0.7) 10^3/uL Baso # (Auto) 0.1 (0.0-0.1) 10^3/uL Abs Immat Gran (auto) 0.04 H (0.00-0.03) 10^3/uL Imm/Tot Granulo (auto) 0.5 (0.0-0.5) % Sodium 139 (136-145) mmol/L Potassium 3.8 (3.5-5.1) mmol/L Chloride 101 (98-107) mmol/L Carbon Dioxide 24.7 (21.0-32.0) mmol/L Anion Gap 17.1 BUN 8.0 (7.0-18.0) mg/dL Creatinine 0.88 (0.70-1.30) mg/dL Est GFR ( Amer) >60 (>=60) Est GFR (Non-Af Amer) >60 (>=60) BUN/Creatinine Ratio 9.1 Glucose 132 H (74-106) mg/dL Calcium 9.4 (8.5-10.1) mg/dL Total Bilirubin 0.8 (0.2-1.0) mg/dL AST 22 (15-37) U/L ALT 41 (16-63) U/L Alkaline Phosphatase 63 (46-116) U/L Troponin I High Sens <4.0 L (4.0-76.1) pg/mL Total Protein 7.0 (6.4-8.2) g/dL Albumin 4.0 (3.4-5.0) g/dL Globulin 3.0 g/dL Albumin/Globulin Ratio 1.3 Discharge Plan Discharge Stand Alone Forms: Work/School Release, Portal Instructions Chief Complaint: Chest Pain Clinical Impression: Chest pain, Anxiety Patient Disposition: Home, Self-Care Time of Disposition Decision: 13:41 Condition: Good Prescriptions / Home Meds: No Action famotidine [Pepcid] 20 mg tablet 20 mg PO DAILY Qty: 30 0RF albuterol sulfate 2.5 mg /3 mL (0.083 %) solution for nebulization 2.5 mg inhalation Q8H PRN (Reason: shortness of breath or wheezing) ipratropium-albuterol 0.5 mg-3 mg(2.5 mg base)/3 mL solution for nebulization INHALATION budesonide-formoterol [Symbicort] 160-4.5 mcg/actuation HFA aerosol inhaler 1 inh INHALATION Q12H ibuprofen 600 mg tablet 600 mg PO Q8H PRN (Reason: pain) Qty: 10 0RF Print Language: [place] Instructions: Chest Pain (DC) Referrals: Juan José Mederos MD [Primary Care Provider] - 1 week
[2023-10-13] MEDS: HYDROXYZINE PAMOATE 25 MG CAPSULE PO (13:05)
[2023-10-13 13:26] LABS: Basophils Absolute Auto 0.1 10^3/uL (0.0-0.1); Basophils Percent Auto 1.1 % (0.2-2.0); Eosinophils Absolute Auto 0.1 10^3/uL (0.0-0.7); Eosinophils Percent Auto 0.9 % (0.9-7.0); Hematocrit 43.4 % (42.0-54.0); Hemoglobin 14.9 g/dL (14.0-18.0); Immature Granulocytes Abs Auto 0.04 10^3/uL (0.00-0.03); Immature Granulocytes Pct Auto 0.5 % (0.0-0.5); Lymphocytes Absolute Auto 2.9 10^3/uL (1.2-3.8); Lymphocytes Percent Auto 38.5 % (20.5-60.0); Mean Corpuscular HGB Conc 34.3 g/dL (29.9-35.2); Mean Corpuscular Hemoglobin 28.1 pg (25.9-34.0); Mean Corpuscular Volume 81.9 fL (80.0-94.0); Mean Platelet Volume 11.7 fL (9.5-13.5); Monocytes Absolute Auto 0.5 10^3/uL (0.3-0.8); Neutrophils Absolute Auto 3.9 10^3/uL (1.4-6.5); Platelet Count 381 10^3/uL (150-450); Red Cell Distribution Width 13.8 % (11.0-15.0); White Blood Count 7.6 10^3/uL (4.0-11.0)
[2023-10-13 13:57] LABS: Alanine Aminotransferase 41 U/L (16-63); Albumin Globulin Ratio 1.3; Alkaline Phosphatase 63 U/L (46-116); Anion Gap 17.1; Aspartate Amino Transferase 22 U/L (15-37); BUN Creatinine Ratio 9.1; Bilirubin Total 0.8 mg/dL (0.2-1.0); Calcium 9.4 mg/dL (8.5-10.1); Carbon Dioxide 24.7 mmol/L (21.0-32.0); Chloride 101 mmol/L (98-107); Estimated GFR (African America >60 (>=60); Estimated GFR (Non-African Ame >60 (>=60); Glucose 132 mg/dL (74-106); Potassium 3.8 mmol/L (3.5-5.1); Sodium 139 mmol/L (136-145); Troponin I High Sensitivity <4.0 pg/mL (4.0-76.1)
== END 2023-10-13 14:20 | disposition home or self-care (01) ==
PROVIDERS: Emergency Provider Emergency Medicine; PCP Family Medicine
DX: R07.9 Chest pain, unspecified (principal); F41.9 Anxiety disorder, unspecified
CPT/HCPCS: 36415; 80053; 84484; 85025; 93005; 99284; Q0177

== ENCOUNTER 2023-11-13 11:09 | Outpatient (OUT) | payer SELFPAY ==
--- NOTE | 2023-11-13 11:13 | XR_ITS ---
The [address] [address] Patient Name: ZAIRA FREITAS MRN: [id number] date: 2000 Sex: M Assigned Patient Location: [facility] Current Patient Location: Accession/Order Number: [id number] Exam Date: 11/13/2023 11:28 Report Date: 11/15/2023 07:16 At the request of: NA SUMNER Procedure: XR cervical spine 2-3V EXAMINATION: XR cervical spine 2-3V HISTORY: Chronic Neck Pain COMPARISON: No relevant comparison available. FINDINGS: BONES: Reversal normal lordotic curvature. Posterior endplate osteophytes C3-C4, C4-C5, C5-C6. No fracture, spondylolisthesis, or bone lesion. No significant facet arthropathy. DISC SPACES: No significant disc height narrowing, subluxation, or endplate abnormality. PARASPINOUS: Negative. No paraspinous abnormality is seen. OTHER: Negative. XR/XR cervical spine 2-3V IMPRESSION: 1. Reversal normal lordotic curvature; positioning versus muscle spasm. 2. Posterior endplate osteophytes at C3-C4 through C5-C6 compatible with degenerative disc disease despite no significant disc space narrowing. Consider MRI for further evaluation. Electronically authenticated by: ERVIN YOUSIF Date: 11/15/2023 07:16
--- OUTSIDE RECORDS SUMMARY | 2023-11-13 11:30 | XMS_ITS | CCD ---
Author Organization [facility] CliniSynj Care Team Providers Care Mini Shifter Name Role Phone ANA MARTIN Unavailable Unavailable [...] Juan José Sumner MD Primary Care Provider Juan José Sumner MD Primary Care Provider [phone] JUAN JOSÉ SUMNER Attending Unavailable NADERENam, JUAN JOSÉ Attending Unavailable NADERER, JUAN JOSÉ Attending Unavailable NADERER, JUAN JOSÉ Attending Unavailable NADERER, JUAN JOSÉ Attending Unavailable Allergies Allergy Classification Reported Allergen(s) Allergy Type Date of Onset Reaction(s) Facility (8 sources) cefotaxime; Translations: [Claforan] Drug Allergy swelled up [facility] Repository (1 source) Cefotaxime Drug Allergy 3 [facility] Repository (4 sources) Cefotaxime Drug Allergy 4 [facility] Healthcare (4 sources) Cephalosporins (Antibiotic) Propensity to adverse reactions 4 [facility] Healthcare Medications Current Medications Medication Drug Class(es) Dates Sig (Normalized) Sig (Original) acetaminophen 325 mg / butalbital 50 mg / caffeine 40 mg oral tablet (2 sources) Barbiturate, Central Nervous System Stimulant, Methylxanthine Start: 11-10-2023 End: 02-08-2024 take 1 tablet by mouth every four hours butalbital-acetami nophen-caffeine 50-325-40 MG tablet Indications: Tension headache Take 1 tablet by mouth every 4 (four) hours 180 tablet 2 11/10/2023 02/08/2024 Active [id number] actuat albuterol 0.09 mg/actuat metered dose inhaler (16 sources) beta2-Adrenergic Agonist Start: 10-05-2023 take 2 puff(s) by inhalation every four hours for wheezing albuterol HFA 90 mcg/act inhaler Indications: Mild persistent asthma, uncomplicated (CMS/HCC) Inhale 2 puffs every 4 (four) hours if needed for wheezing or shortness of breath 8.5 g 3 10/05/2023 Active Start: 03-19-2023 take 2 puff(s) by in halation every four hours for wheezing albuterol HFA [...] needed for shortness of breath or wheezing 08/27/2022 Active Ventolin HFA Act bud albuterol 0.833 mg/ml / ipratropium bromide 0.167 mg/ml inhalation solution (4 sources) Anticholinergic, beta2-Adrenergic Agonist Start: 10-05-2023 ipratropium-albuterol (Duo-Neb) 0.5-2.5 mg/3 mL nebulizer solution Indications: Moderate episode of recurrent major depressive disorder (CMS/HCC) INHALE CONTENTS OF 1 VIAL( 3 MILLILITERS) IN NEBULIZER BY MOUTH AND INTO THE LUNGS EVERY 4 HOURS IF NEEDED 270 mL 3 10/05/2023 Active Start: 01-03-2023 ipratropium-al buterol (Duo-Neb) 0.5-2.5 mg/3 mL nebulizer solution Take 3 mL by nebulization in the morning and 3 mL at noon and 3 mL in the evening and 3 mL before bedtime. 0 01/03/2023 Active 60 actuat budesonide 0.16 mg/actuat / formoterol fumarate 0.0045 mg/actuat metered dose inhaler (6 sources) Corticosteroid, beta2-Adrenergic Agonist Start: 11-10-2023 take 2 puff(s) by inhalation in the morning budesonide-formoterol (Symbicort) 160-4.5 MCG/ACT inhaler Indications: Mild persistent asthma, uncomplicated (CMS/HCC) Inhale 2 puffs in the morning and 2 puffs before bedtime. Rinse mouth with water after use to reduce aftertaste and incidence of candidiasis. Do not swallow.. 1 each 5 11/10/2023 Active Start: 05-07-2023 End: 11-10-2023 take 2 puff(s) by inhalation in the morning budesonide-formoterol (Symbicort) 80-4.5 MCG/ACT inhaler Indications: Mild persistent asthma, uncomplicated (CMS/HCC) Inhale 2 puffs in the morning and 2 puffs before bedtime. Rinse mouth with water after use to reduce aftertaste and incidence of candidiasis. Do not swallow.. 1 each 3 05/07/2023 11/10/2023 Discontinued Start: 01-02-2023 take 2 puff(s) by in halation in the morning Symbicort 160-4.5 MCG/ACT inhaler Inhale 2 puffs in the morning and 2 puffs before bedtime. 0 01/02/2023 Active cyclobenzaprine hydrochloride 10 mg oral tablet (2 sources) Muscle Relaxant Start: 11-10-2023 End: 11-20-2023 take 1 tablet by mouth in the morning, then take 1 tablet by mouth in the evening, then take 1 tablet by mouth at bedtime cyclobenzaprine (Flexeril) 10 MG tablet Indications: Chronic neck pain Take 1 tablet (10 mg) by mouth in the morning and 1 tablet (10 mg) in the evening and 1 tablet (10 mg) before bedtime. Do all this for 10 days. 30 tablet 11/10/2023 11/20/2023 Active esomeprazole 40 mg delayed release oral capsule (1 source) Proton Pump Inhibitor Start: 11-10-2022 Esomeprazole Magnesium 40 MG 1 capsule 30 MINUTES BEFORE EATING TWICE A DAY Orally TWICE A DAY for 30 days Nov, Active hydrOXYzine hydrochloride 25 mg oral tablet (4 sources) Antihistamine Start: 11-26-2022 take 1 tablet by mouth four times daily as needed for anxiety hydrOXYzine HCl (Atarax) 25 MG tablet Take 25 mg by mouth 4 (four) times a day as needed for anxiety 11/26/2022 Active lansoprazole 30 mg delayed release oral capsule (2 sources) Proton Pump Inhibitor Start: 11-18-2022 Lansoprazole 30 MG 1 capsule before a meal twice a day Orally twice a day for 30 days Nov, Active montelukast 10 mg oral tablet (11 sources) Leukotriene Receptor Antagonist Start: 01-02-2023 take 1 tablet by mouth at bedtime montelukast (Singulair) 10 MG tablet Take 10 mg by mouth at bedtime 01/02/2023 Active omeprazole 40 mg delayed release [...] 1 tablet Orally TWICE A DAY Active predniSONE 50 mg oral tablet (2 sources) Start: End: 4 take 1 tablet by mouth once daily predniSONE (Deltasone) 50 MG tablet Indications: Chronic neck pain Take 1 tablet (50 mg) by mouth Daily for 6 days 6 tablet 11/10/2023 11/16/2023 Active raNITIdine (3 sources) Histamine-2 Receptor Antagonist raNITIdine HCl (ZANTAC 75 PO) Take by mouth Active sertraline 50 mg oral tablet (11 sources) Serotonin Reuptake Inhibitor Start: 4 take 1 tablet by mouth once daily sertraline (Zoloft) 50 MG tablet Indications: Moderate episode of recurrent major depressive disorder (CMS/HCC) Take 1 tablet (50 mg) by mouth Daily 30 tablet 5 07/28/2023 Active Start: 02-23-2023 take 1 tablet by blayne th in the morning sertraline (Zoloft) 100 MG tablet Indications: Moderate episode of recurrent major depressive disorder (HCC) (CMS/HCC) Take 1 tablet (100 mg) by mouth in the morning. 30 tablet 5 02/23/2023 Active Sertraline HCl A ctive Completed/Discontinued Medications Medication Drug Class(es) Dates Sig (Normalized) Sig (Original) ketoconazole 20 mg/ml medicated shampoo (4 sources) Azole Antifungal Start: 03-19-2023 End: 11-10-2023 ketoconazole (Nizoral) 2 % shampoo Indications: Seborrheic dermatitis Apply topically 2 (two) times a week 120 mL 3 03/19/2023 11/10/2023 Discontinued Problems Active Problems Problem Classification Problem Date Documented Da te Episodic/Chronic Anxiety disorders (4 sources) Generalized anxiety disorder; Translations: [Generalized anxiety disorder] Onset: 4 02-23-2023 Chronic Asthma (11 sources) Mild persistent asthma, uncomplicated; Translations: [Uncomplicated mild persistent asthma] Onset: 2 Chronic Esophageal disorders (16 sources) Gastroesophageal reflux disease; Translations: [Gastro-esophageal reflux disease without esophagitis] Onset: 2 Resolved: 2 Chronic Esophageal disorders (1 source) Esophageal disorders; Translations: [Gastro-esophageal reflux disease without esophagitis] Onset: 3 Headache; including migraine (4 sources) Tension-type headache; Translations: [Tension-type headache, unspecified, not intractable] Onset: 4 11-10-2023 Chronic Mood disorders (3 sources) Moderate recurrent major depression; Translations: [Major depressive disorder, recurrent, moderate] Onset: 4 05-07-2023 Chronic Nutritional deficiencies (4 sources) Vitamin D deficiency; Translations: [Vitamin D deficiency, unspecified] Onset: 4 02-23-2023 Chronic Other connective tissue disease (3 sources) Pain of right upper arm; Translations: [Pain in right upper arm] Onset: 4 09-22-2023 Episodic Other gastrointestinal disorders (4 sources) Irritable bowel syndrome with constipation; Translations: [IRRITABLE BOWEL SYND W/CONSTIPATION] Onset: 1 Chronic Other lower respiratory disease (1 source) Shortness of breath; Translations: [SHORTNESS OF BREATH] Onset: 2 Episodic Other nutritional; endocrine; and metabolic disorders (4 sources) Body mass index 30+ - obesity; Translations: [Obesity, unspecified] Onset: 4 02-23-2023 Chronic Other upper respiratory disease (6 sources) Allergic rhinitis due to pollen; Translations: [Allergic rhinitis due to pollen] Onset: 4 02-23-2023 Chronic Spondylosis; intervertebral disc disorders; other back problems (4 sources) Chronic neck pain; Translations: [Cervicalgia] Onset: 4 11-10-2023 Episodic Past or Other Problems Problem Classification Problem Date Documented Da te Episodic/Chronic Other inflammatory condition of skin (4 sources) Seborrheic dermatitis; Translations: [Seborrheic dermatitis, unspecified] Onset: 03-17-2023 03-17-2023 Episodic Other upper respiratory infections (4 sources) Acute pansinusitis; Translations: [Acute pansinusitis, unspecified] Onset: 02-23-2023 Resolved: 11-10-2023 02-23-2023 Episodic Results Test Name Value Interpretation Reference Range Facility ECHOCARDIO M/2D COMPLETEon 0 10-04-2021 ECHOCARDIO M/2D COMPLETE Patient: VITO JAIN Exam Date: 10/04/2021 : 2000 Gender:M Ordering : DR. PRANAV RICE . Admission #: [id number] Family : Order #: [id number] CLICK HERE TO VIEW EXAM ECHOCARDIOGRAM REPORT [...] Hernandez M.D. on 10/04/2021 at 15:01 Normal [facility] XR ABD FLAT_UPon 11-16-2020 XR [...] ERVIN YOUSIF Date: 2020-11-16 06:42 Normal [facility] Otolaryngology Consultationo n 03-23-2017 Otolaryngology Consultation Chief [...] Ana Martin MD 03/23/17 13:29 EST Normal [facility] Provider Letteron 03-23-2017 Provider Letter Juan José [id number] [place], [place] [address]Gz: Vito EstepDate of Visit: 03/23/2017Dear Juan José Sumner,Thank you for the referral of your patient to our office.Let me know if you have any questions or concerns.Sincerely,Cintia Feldman Providers:The following document(s) were included in the letter:March 23, 2017 13:27:00 EST - (03/23/2017) Consult Note Normal [facility] Vital Signs Date Time Vital Sign Value Performing Clinician Facility 11-10-2023 13:55-0400 Body height 182.9 cm Juan José Sumner MD Work Phone: [facility] 11-10-2023 13:55-0400 Body mass index (BMI) [Ratio] 36.35 kg/m2 Juan José Sumner MD Work Phone: [facility] [employer] 11-10-2023 13:55-0400 Body temperature 97.81 [degF] Juan José Sumner MD Work Phone: [facility] 11-10-2023 13:55-0400 Body weight 121.56 kg Juan José Sumner MD Work Phone: [facility] 11-10-2023 13:55-0400 Diastolic blood pressure 76 mm[Hg] Juan José Sumner MD Work Phone: [facility] 11-10-2023 13:55-0400 Heart rate 82 /min Juan José Sumner MD Work Phone: [facility] 11-10-2023 13:55-0400 Respiratory rate 20 /min Juan José Sumner MD Work Phone: [facility] 11-10-2023 13:55-0400 SaO2% (BldA) [Mass fraction] 99 % Juan José Sumner MD Work Phone: [facility] 11-10-2023 13:55-0400 Systolic blood pressure 128 mm[Hg] Juan José Sumner MD Work Phone: [facility] 10-25-2021 10:45-0400 Body height 182.88 cm Aryan Vera Other [employer] Other 10-25-2021 10:45-0400 Body mass index (BMI) [Ratio] 35.39 kg/m2 Aryan Vera Other [employer] Other 10-25-2021 10:45-0400 Body weight 118.39 kg Aryan Vera Other [employer] Other 10-25-2021 10:45-0400 Diastolic blood pressure 95 mm[Hg] Aryan Vera Other [employer] Other 10-25-2021 10:45-0400 Systolic blood pressure 139 mm[Hg] Aryan Vera Other [employer] Other Encounters Encounter Date Encounter Type Care Provider Facility Start: 11-10-2023 End: 11-10-2023 Bamboo flowsheet Juan José Sumner MD Work Phone: [facility] Start: 11-10-2023 End: 11-10-2023 Bamboo flowsheet Juan José Sumner MD Work Phone: [facility] Start: 11-10-2023 End: 11-10-2023 Office outpatient visit 25 minutes Juan José Sumner MD Work Phone: [facility] Comment on above: Tension headache (Pr imary Dx); Chronic neck pain; Seasonal allergic rhinitis due to pollen; Mild persistent asthma, uncomplicated (CMS/HCC) Start: 11-10-2023 End: 11-10-2023 ambulatory JUAN JOSÉ NADERER Not Available Start: 09-22-2023 End: 09-22-2023 ambulatory JUAN JOSÉ NADERER Not Available Start: 07-28-2023 End: 07-28-2023 ambulatory JUAN JOSÉ NADERER Not Available Start: 05-07-2023 End: 05-07-2023 ambulatory JUAN JOSÉ NADERER Not Available Start: 03-19-2023 Orders Only Juan José Curry Work Phone: [facility] Comment on above: Mild persistent asth ma, uncomplicated (CMS/HCC) (Primary Dx) Start: 02-23-2023 End: 02-23-2023 ambulatory JUAN JOSÉ NADERER Not Available Start: 01-13-2023 End: 01-13-2023 ambulatory Aryan Vera Other [employer] Other Start: 01-13-2023 Telephone encounter Aryan TITUS [facility] Start: 11-18-2022 End: 11-18-2022 ambulatory Aryan Vera Other [employer] Other Start: 11-18-2022 Telephone encounter Aryan Damarideandre [facility] Start: 11-05-2022 End: 11-05-2022 ambulatory Aryan Vera Other [employer] Other Start: 11-05-2022 Telephone encounter Aryan Wetzeldeandre [facility] Start: 10-31-2022 End: 10-31-2022 ambulatory Aryan Vera Other [employer] Other Start: 10-31-2022 Telephone encounter Aryan Wetzeldeandre [facility] Start: 10-28-2022 End: 10-28-2022 ambulatory Aryan Steph Anastasiiadann Facility:[facility] Start: 08-01-2022 End: 08-01-2022 ambulatory Aryan Wetzelreagandann Other [employer] Other Start: 08-01-2022 Telephone encounter Aryan Damarideandre [facility] Start: 11-13-2021 End: 11-13-2021 ambulatory Aryan Vera Other [employer] Other Start: 11-13-2021 Telephone encounter Aryan Damarideandre [facility] Start: 10-25-2021 End: 10-25-2021 ambulatory Aryan Damarireagandann Other [employer] Other Start: 10-25-2021 [facility] visit new patient Aryan Wetzelreagandann [facility] Start: 10-23-2021 ambulatory PRANAV RICE Facility:[facility] Start: 10-04-2021 End: 10-05-2021 ambulatory PRANAV RICE Facility:[facility] Start: 11-15-2020 End: 11-16-[address] JUAN JOSÉ SUMNER Facility:[facility] Start: 03-23-2017 End: 03-24-2017 Ambulatory ANA MARTIN Facility:[facility] Spec-No rth Plan of Treatment Date Care Activity Detail Author Start: 12-22-2023 End: 12-22-2023 Patient encounter procedure 12/22/2023 2:00 PM EST Office Visit [facility] [address] [place] [address] Juan José Sumner MD [address] [place] [phone] [facility] Start: 11-10-2023 End: 11-09-2024 XR Cervical spine 2 or 3 Views XR cervical spine 2 or 3 views Imaging Routine Chronic neck pain Expected: 11/10/2023, Expires: 11/09/2024 [facility] Work Phone: Comment on above: Expected: 11/10/2023 , Expires: 11/09/2024 Start: 11-10-2023 End: 11-10-2023 Patient encounter procedure 11/10/2023 1:45 PM EDT Office Visit [facility] [address] [place] [phone] Juan José Sumner MD [address] [place] [phone] Arrived [facility] Comment on above: Arrived Start: 10-11-2023 Influenza vaccination Influenz a Vaccine (#1) [facility] Start: 05-26-2023 End: 05-26-2023 Patient encounter procedure 05/26/2023 1:00 PM EDT Office Visit [facility] [address] [place] [phone] Juan José Sumner MD [address] [place] [phone] [facility] Start: 10-10-2022 Influenza vaccination Influenz a Vaccine (#1) [facility] Payers Date Payer Category Payer Self-pay 2022 Medicaid [employer] [employer] [place] [id number] 2022-Present [address] [place] [address] [id number] 2013 Unknown 2000 Unknown [id number] 2000 Unknown [id number] 2000 Unknown [id number] 1998 Unknown [id number] 1998 Unknown [id number] 1998 Unknown [id number] 1998 Unknown [id number] 1998 Unknown [id number] 1959 Unknown [id number] 1959 Unknown [id number] 1959 Unknown [id number] Medicaid [id number] Medicaid [id number] Unknown [id number] Social History Date Type Detail Facility Unknown if ever smoked [employer] Other Start: 01-27-2023 End: 02-23-2023 Sex Assigned At [facility] Start: 02-23-2023 Tobacco smoking status NCIS Never smoked tobacco [facility] Start: 02-23-2023 Tobacco use and exposure Smokeless tobacco non-user [facility] Start: 01-27-2023 End: 02-23-2023 History of Social function [facility] Start: 2000 Sex Assigned At Not on file [facility] History of Present illness Narrative 11-10-2023 Juan José Sumner MD - 11/10/2023 2:23 PM EDTMarmani Sumner MD - 11/10/2023 2:23 PM EDTMarmani Sumner MD - 11/10/2023 2:23 PM EDTMarmani Sumner MD - 11/10/2023 1:45 PM EDT Note Date & Type Note Facility 11-10-2023 History of Presen t illness Narrative Associated Problem(s): Tension headache Frequent CHAPMAN and start fioricet PRN. Associated Problem(s): Seasonal allergic rhinitis due to pollen Symptoms worse and resume flonase. Associated Problem(s): Chronic neck pain Pain for years and getting worse. Check x-ray and start PT. Use flexeril PRN. Images from the original note were not included. Subjective Patient ID: Vito Jain is a 23 y.o. male who presents for Migraine. C/o worsening CHAPMAN over the past few weeks. No history of migraines or recurring CHAPMAN. C/o pain and pressure in forehead and top head. C/o squeezing pain and radiates to back of head and neck. Chronic neck pain for years and no prior evaluation. CHAPMAN causes nausea and makes it hard to function. No photophobia or phonophobia. Feels off balance and unsteady with CHAPMAN. No fall, injury, or trauma. Recently with worsening allergies and sinus symptoms. Not on daily sinus medication. Using advil PRN and not helping. Review of Systems Constitutional: Negative for fatigue. Respiratory: Negative for cough, shortness of breath and wheezing. Cardiovascular: Negative for chest pain and palpitations. Gastrointestinal: Negative for abdominal pain, diarrhea, nausea and vomiting. Genitourinary: Negative for dysuria. Objective Physical Exam Constitutional: General: He is not in acute distress. Appearance: Normal appearance. HENT: Head: Normocephalic. Right Ear: Tympanic membrane and ear canal normal. Left Ear: Tympanic membrane and ear canal normal. Eyes: Extraocular Movements: Extraocular movements intact. Pupils: Pupils are equal, round, and reactive to light. Cardiovascular: Rate and Rhythm: Normal rate and regular rhythm. Heart sounds: No murmur heard. No friction rub. No gallop. Pulmonary: Breath sounds: Normal breath sounds. No wheezing, rhonchi or rales. Abdominal: General: Bowel sounds are normal. There is no distension. Palpations: Abdomen is soft. Tenderness: There is no abdominal tenderness. There is no guarding or rebound. Musculoskeletal: Left lower leg: No edema. Neurological: Mental Status: He is alert. Assessment/Plan Problem List Items Addressed This Visit Mild persistent asthma, uncomplicated (CMS/HCC) Relevant Medications budesonide-formoterol (Symbicort) 160-4.5 MCG/ACT inhaler Seasonal allergic rhinitis due to pollen Symptoms worse and resume flonase. Tension headache - Primary Frequent CHAPMAN and start fioricet PRN. Relevant Medications [id number]-fngnxcnsfzqgo-piqydxox 50-325-40 MG tablet Chronic neck pain Pain for years and getting worse. Check x-ray and start PT. Use flexeril PRN. Relevant Medications predniSONE (Deltasone) 50 MG tablet cyclobenzaprine (Flexeril) 10 MG tablet Other Relevant Orders XR cervical spine 2 or 3 views documented in this encounter [facility] Healthcare Evaluation note 10-25-2021 Note Date & Type Note Facility 10-25-2021 Evaluation note Encounter Date Diagnosis Assessment Notes Oct, GERD (gastroeso phageal reflux disease) (ICD-10 - K21.9) CONTINUE PRILOSEC OT 20 MG DAILY CONTINUE PANTOPRAZOLE 20 MG TWICE A DAY [employer] Other Evaluation note Note Date & Type Note Facility Evaluation note No Information [facility] [employer] Other Evaluation note Note Date & Type Note Facility Evaluation note Diagnosis Mild persistent asthma, uncomplicated (CMS/HCC)- Primary documented in this encounter [facility] Evaluation note Note Date & Type Note Facility Evaluation note Diagnosis Tension headache- Primary Chronic neck pain Cervicalgia Seasonal allergic rhinitis due to pollen Mild persistent asthma, uncomplicated (CMS/HCC) documented in this encounter [facility] History general Narrative - Reported Note Date & Type Note Facility History general Narrative - Reported Type Medical History Asthma Medical History Anxiety Surgical History tubes in ears as a young child Surgical History tonsillectomy 2002 Hospitalization History RSV as an infant [facility] [email or web address] Other Reason for visit Narrative Note Date & Type Note Facility Reason for visit Narrative PATIENT HERE AT THE REQUEST OF DR PRANAV RICE FOR EVALUATION & TREATMENT OF GERD [email or web address] Other Summary Purpose Family History No Family [...] section and content) DATE CREATED AUTHOR 08/03/2017 [facility] DATE CREATED AUTHOR AUTHOR'S ORGANIZ ATION 10/21/2021 [facility] DATE CREATED AUTHOR AUTHOR'S ORGANIZ ATION 11/10/2022 [facility] DATE CREATED AUTHOR AUTHOR'S ORGANIZ ATION 11/12/2023 [facility] EPIC REASON FOR VISIT (unrecogniz ed section and content) Reason Comments Migraine Care Teams (unrecognized sec tion and content) Mini Shifter Relationship Specialty Start Date End Date Juan José Sumner MD PCP - General Family Medicine 08/27/22 Mini Shifter Relationship Specialty Start Date End Date Juan José Sumner MD [address] [place] [address] PCP - General Family Medicine 05/07/23 Mini Shifter Relationship Specialty Start Date End Date Juan José Sumner MD [address] [place] [address] PCP - General Family Medicine 05/07/23 FOR RECORDS PERTAINING TO PATIENTS WHO ARE [...] BE BASED ON THE PRIMARY CLINICAL RECORDS. [employer] [facility]. provides no warranty or guarantee of the accuracy or completeness of information in this document.
== END 2023-11-13 11:10 | disposition home or self-care (01) ==
LOC: LAB 11:10 → RAD 11:11
PROVIDERS: PCP Family Medicine; Visit Provider Family Medicine
DX: M54.2 Cervicalgia (principal); G89.29 Other chronic pain; M25.78 Osteophyte, vertebrae
CPT/HCPCS: 72040

== ENCOUNTER 2024-02-23 16:16 | Emergency (ER) | payer SELFPAY ==
[2024-02-23 16:19] VITALS: BP 150/89; PULSE 102; TEMP 37.2; O2SAT 100; BMI 33.9
--- NOTE | 2024-02-23 16:29 | ED_ITS ---
HPI HPI - General Adult General Chief complaint: Headache Stated complaint: HEADACHES Time Seen by Provider: 02/23/24 16:16 Source: patient Mode of arrival: walk-in History of Present Illness HPI narrative: Patient is a 23-year-old male with mild developmental delay who presents to the emergency department for 2-week history of headache located over the top of his head, he states he saw his PCP 3 days ago who placed him on amoxicillin for suspected sinus infection. He states since he saw his PCP, he now feels an increase in neck pain. He is noted to have had x-rays of her neck pain several months ago at this facility for chronic neck pain, however he states this neck pain is different. He is ambulatory, in no distress on initial interview. He has had no fevers, vomiting, visual changes, sore throat or cough. He has not been taking any medications for his symptoms other than the amoxicillin that was prescribed. He has no history of frequent migraines. Related Data Home Medications ?Medication ?Instructions ?Recorded ?Confirmed albuterol sulfate 2.5 mg/3 mL 2.5 mg inhalation Q8H PRN 03/29/23 08/15/23 (0.083 %) solution for nebulization shortness of breath or wheezing budesonide-formoterol HFA 160 1 inh inhalation Q12H 04/28/23 08/15/23 mcg-4.5 mcg/actuation aerosol inhaler (Symbicort) ipratropium 0.5 mg-albuterol 3 mg ml inhalation 04/28/23 (2.5 mg base)/3 mL nebulization soln amoxicillin 400 mg-potassium 10 ml PO Q12H 02/23/24 02/23/24 clavulanate 57 mg/5 mL oral suspension Previous Rx's ?Medication ?Instructions ?Recorded famotidine 20 mg tablet (Pepcid) 20 mg PO DAILY #30 tabs 11/07/22 ibuprofen 600 mg tablet 600 mg PO Q8H PRN pain #10 tabs 08/29/23 ketorolac 10 mg tablet 10 mg PO TID PRN pain #10 tabs 02/23/24 methocarbamol 750 mg tablet 750 mg PO TID PRN pain #20 tabs 02/23/24 Allergies Allergy/AdvReac Type Severity Reaction Status Date / Time [facility] ([facility] AdvReac Unknown Unknown Verified 07/06/24 19:19 Opioid HPI Opioid Management Most Recent Opioid Data: Last Pain Scale 3 02/23/24 16:46 02/23/24 Last ED Pain Assessment 02/23/24 16:46 Review of Systems ROS Constitutional Denies: fever or chills Ears, nose, mouth, and throat Reports: neck pain; Denies: throat pain or ear pain Cardiovascular Denies: chest pain Respiratory Denies: shortness of breath or cough Gastrointestinal Denies: abdominal pain, nausea or vomiting Musculoskeletal Reports: neck pain; Denies: back pain, extremity pain or extremity swelling Integumentary/Breast Denies: rash Neurological Reports: headache; Denies: numbness in extremities or weakness in extremities Hematologic/Lymphatic Denies: easy bruising or easy bleeding PFSH PFSH Social History Smoking status: Never smoker Exam Narrative Exam Narrative: Gen.: Awake, alert, in no distress Head: Normocephalic, atraumatic ENT: Moist mucous membranes, no nuchal rigidity or meningismus. Bilateral TMs with no erythema or injection Respiratory: No respiratory distress, lungs clear bilaterally Cardio: Regular rate and rhythm Extremities: Moves extremities equally Psych: Normal mood and affect Neuro: No focal neuro deficit, mild developmental delay Skin: Warm, dry, intact Constitutional Vital Signs, click to edit/add: Last Vital Signs Temp 99.0 F 02/23/24 16:19 Pulse 102 H 02/23/24 16:19 Resp 18 02/23/24 16:19 BP 150/89 H 02/23/24 16:19 Pulse Ox 100 02/23/24 16:19 Course Vital Signs Vital signs: Vital Signs Temperature 99.0 F 02/23/24 16:19 Pulse Rate 102 H 02/23/24 16:19 Respiratory Rate 18 02/23/24 16:19 Blood Pressure 150/89 H 02/23/24 16:19 Pulse Oximetry 100 02/23/24 16:19 Temperature 99.0 F 02/23/24 16:19 Pulse Rate 102 H 02/23/24 16:19 Respiratory Rate 18 02/23/24 16:19 Blood Pressure 150/89 H 02/23/24 16:19 Pulse Oximetry 100 02/23/24 16:19 Medical Decision Making MDM Narrative Medical decision making narrative: CT of the head and cervical spine are unremarkable. Medications were ordered for the patient in the ER, patient declined intramuscular Toradol and Norflex and states his headache is not that bad at this time. He has a benign exam, unremarkable imaging and is currently on any antibiotic for suspected sinus infection. He will be placed on Toradol for headache and Robaxin for neck pain. Follow-up with PCP and return to the emergency department if symptoms change or worsen SHARED APC VISIT, PHYSICIAN ATTESTATION: [id number] I performed a substantive part of the MDM during the patient?s E/M visit. I personally evaluated and examined the patient. I personally made or approved the documented management plan and acknowledge its risk of complications. Medical Records Medical records reviewed: Yes I reviewed the patient's medical records Imaging Data CT scan - head: Attestation: I have reviewed the pertinent imaging results. Radiologist's impression: ITS Impressions Cervical Spine CT 02/23/24 16:38 IMPRESSION: 1. No appreciable acute abnormality. 2. Mild degenerative changes. 3. Straightening of normal lordotic curvature; positioning versus muscle spasm. Electronically authenticated by: ERVIN YOUSIF Date: 02/23/2024 16:[address] 02/23/24 16:38 IMPRESSION: Negative head CT. Electronically authenticated by: JAGRUTI CANO Date: 02/23/2024 16:51 Discharge Plan Discharge Chief Complaint: Headache Clinical Impression: Headache Patient Disposition: Home, Self-Care Time of Disposition Decision: 17:04 Condition: Good Prescriptions / Home Meds: New ketorolac 10 mg tablet 10 mg PO TID PRN (Reason: pain) Qty: 10 0RF methocarbamol 750 mg tablet 750 mg PO TID PRN (Reason: pain) Qty: 20 0RF No Action famotidine [Pepcid] 20 mg tablet 20 mg PO DAILY Qty: 30 0RF albuterol sulfate 2.5 mg /3 mL (0.083 %) solution for nebulization 2.5 mg inhalation Q8H PRN (Reason: shortness of breath or wheezing) ipratropium-albuterol 0.5 mg-3 mg(2.5 mg base)/3 mL solution for nebulization INHALATION budesonide-formoterol [Symbicort] 160-4.5 mcg/actuation HFA aerosol inhaler 1 inh INHALATION Q12H amoxicillin-pot clavulanate 400-57 mg/5 mL suspension for reconstitution 10 ml PO Q12H ibuprofen 600 mg tablet 600 mg PO Q8H PRN (Reason: pain) Qty: 10 0RF Print Language: Singaporean Instructions: Acute Headache (ED) Referrals: Juan José Mederos MD [Primary Care Provider] - 1 week
--- NOTE | 2024-02-23 16:38 | CT_ITS ---
The [address] [address] Patient Name: ZAIRA FREITAS MRN: [id number] date: 2000 Sex: M Assigned Patient Location: ER Current Patient Location: ER Accession/Order Number: [id number] Exam Date: 02/23/2024 16:30 Report Date: 02/23/2024 16:51 At the request of: KEE MCCARTNEY Procedure: CT head/brain wo con EXAM: CT scan of the head without contrast. Dose reduction technique used: Automated exposure control and/or adjustment of the mA and/or kV according to patient size and/or use of iterative reconstruction technique. REASON FOR EXAM: Headache COMPARISON: CT scan dated 10/02/2009 FINDINGS: No intracranial hemorrhage, mass effect, midline shift, fractures or evidence of acute ischemic infarct. No hydrocephalus. Paranasal sinuses and mastoid air cells are clear. Remainder unremarkable. CT/CT head/brain wo con IMPRESSION: Negative head CT. Electronically authenticated by: JAGRUTI CANO Date: 02/23/2024 16:51
--- NOTE | 2024-02-23 16:38 | CT_ITS ---
[address] [address] Patient Name: ZAIRA FREITAS MRN: [id number] date: 2000 Sex: M Assigned Patient Location: ER Current Patient Location: ER Accession/Order Number: [id number] Exam Date: 02/23/2024 16:30 Report Date: 02/23/2024 16:53 At the request of: KEE MCCARTNEY Procedure: CT cervical spine wo con EXAMINATION: CT cervical spine wo con HISTORY: Neck COMPARISON: No relevant comparison available. TECHNIQUE: Axial, Coronal, and Sagittal images were created without IV contrast. Dose reduction techniques were achieved by using automated exposure control and/or adjustment of mA and/or kV according to patient size and/or use of iterative reconstruction technique. FINDINGS: VERTEBRAL BODIES: Straightening of the normal lordotic curvature. No fracture, spondylolisthesis, bone lesion. FACET JOINTS: No disruption or abnormal widening. DISCS: Mild narrowing and mild uncovertebral joint spurring C4-5, C5-6, C6-7. CENTRAL CANAL: No spinal stenosis or evidence of hemorrhage. PARASPINAL AREA: No visible mass. CT/CT cervical spine wo con IMPRESSION: 1. No appreciable acute abnormality. 2. Mild degenerative changes. 3. Straightening of normal lordotic curvature; positioning versus muscle spasm. Electronically authenticated by: ERVIN YOUSIF Date: 02/23/2024 16:53
== END 2024-02-23 17:15 | disposition home or self-care (01) ==
PROVIDERS: Emergency Provider Emergency Medicine; PCP Family Medicine
DX: R51.9 Headache, unspecified (principal); M54.2 Cervicalgia
CPT/HCPCS: 70450; 72125; 99284

== ENCOUNTER 2024-03-23 13:56 | Emergency (ER) | payer SELFPAY ==
[2024-03-23] VITALS (14 sets, daily range): BP systolic 120–160; BP diastolic 82–103; PULSE 93–101; TEMP 36.9; O2SAT 94–100; BMI 33.9
--- NOTE | 2024-03-23 14:11 | ECG_ITS ---
The [facility] Test Date: 2024-03-23 Pat Name: ZAIRA FREITAS Department: Room: - Gender: Male Gill Tender: : 2000 Requested By: NA SUMNER Order Number: [id number] Reading MD: RONY FOFANA Measurements Intervals [place] Rate: 96 P: 82 UT: 138 QRS: 12 QRSD: 70 T: 3 QT: 310 QTc: 364 Interpretive Statements 1100 Sinus rhythm Non-Specific T wave inversion in III 9110 normal ECG Compared to ECG 10/13/2023 12:40:56 No significant changes Electronically Signed On 03-25-2024 5:26:02 EST by RONY FOFANA
--- NOTE | 2024-03-23 14:11 | XR_ITS ---
[address] [address] Patient Name: ZAIRA FREITAS MRN: [id number] date: 2000 Sex: M Assigned Patient Location: ER Current Patient Location: ED.MAIN Accession/Order Number: [id number] Exam Date: 03/23/2024 14:34 Report Date: 03/23/2024 15:18 At the request of: MANI SCHAEFER Procedure: XR chest 2V EXAM: CHEST 2 VIEWS HISTORY: cp TECHNIQUE: PA and lateral views chest. COMPARISON: 09/16/2022. FINDINGS: The lungs are clear. There is no focal lung consolidation, pleural effusion or pneumothorax. Pulmonary vasculature is within normal limits. The cardiomediastinal silhouette is normal. XR/XR chest 2V IMPRESSION: 1. No acute cardiopulmonary disease. Electronically authenticated by: VERITO MONROY Date: 03/23/2024 15:18
--- NOTE | 2024-03-23 14:13 | ED_ITS ---
HPI HPI - General Adult General Chief complaint: Chest Pain Stated complaint: CHEST PAINS Time Seen by Provider: 03/23/24 13:58 Source: patient Mode of arrival: walk-in History of Present Illness HPI narrative: Patient Elizabeth to ED complaining of chest pain. Patient states he has left-sided chest pain that started yesterday. He said it was going into his left arm a little bit. He said he has been slightly anxious as well. He denies any nausea or vomiting. No cough no fevers. He denies any sore throat. He denies any history of cardiac issues. He denies leg pain or swelling or shortness of breath. He was concerned about the chest pain so he came in for further evaluation. He said he feels like his heart races on and off as well. No diaphoresis. Patient is resting comfortably in the bed Related Data Home Medications ?Medication ?Instructions ?Recorded ?Confirmed albuterol sulfate 2.5 mg/3 mL 2.5 mg inhalation Q8H PRN 03/29/23 03/23/24 (0.083 %) solution for nebulization shortness of breath or wheezing budesonide-formoterol HFA 160 1 inh inhalation Q12H 04/28/23 03/23/24 mcg-4.5 mcg/actuation aerosol inhaler (Symbicort) ranitidine HCl 150 mg capsule mg 03/23/24 Allergies Allergy/AdvReac Type Severity Reaction Status Date / Time cefotaxime (From [place]) AdvReac Unknown Unknown Verified 03/23/24 14:03 Opioid HPI Opioid Management Most Recent Opioid Data: Last Pain Scale 7 03/23/24 14:23 03/23/24 Review of Systems ROS Status of ROS 10 or more systems reviewed and unremark able except as noted in history and below [facility] Social History Smoking status: Never smoker Little interest or pleasure in doing things: not at all Feeling down, depressed, or hopeless: not at all Exam Narrative Exam Narrative: Time Seen: [] Vital Signs: [Per nurse's notes.] General: [Alert] Skin: [Warm, dry, no rash.] Head: [Normocephalic, atraumatic.] Neck: [Supple, trachea midline.] Eye: [Pupils are equal, round and reactive to light, extraocular movements are intact, normal conjunctiva.] Ears, nose, mouth and throat: oral mucosa moist. Cardiovascular: [Regular rate and rhythm, no murmur.] Respiratory: [Lungs are clear to auscultation, respirations are non-labored, breath sounds are equal.] Chest wall: [No tenderness, no deformity.] Chest pain is not reproducible with palpation Gastrointestinal: [Soft, nontender, non distended, normal bowel sounds.] MSK: 5 out of 5 muscle strength x 4 extremities no calf pain or edema Lymphatics: [No lymphadenopathy.] Psychiatric: [Cooperative, appropriate mood & affect.] Neurological: [Alert and oriented to person, place, time, and situation, no focal neurological deficit observed.] Constitutional Vital Signs, click to edit/add: Last Vital Signs Temp 98.5 F 03/23/24 14:04 Pulse 95 H 03/23/24 15:20 Resp 20 03/23/24 15:20 BP 120/103 H 03/23/24 15:15 Pulse Ox 97 03/23/24 15:20 O2 Del Method Room Air 03/23/24 14:04 Course Vital Signs Vital signs: Vital Signs Temperature 98.5 F 03/23/24 14:04 Pulse Rate 96 H 03/23/24 14:04 Respiratory Rate 18 03/23/24 14:04 Blood Pressure 158/98 H 03/23/24 14:04 Pulse Oximetry 100 03/23/24 14:04 Oxygen Delivery Method Room Air 03/23/24 14:04 Temperature 98.5 F 03/23/24 14:04 Pulse Rate 95 H 03/23/24 15:20 Respiratory Rate 20 03/23/24 15:20 Blood Pressure 120/103 H 03/23/24 15:15 Pulse Oximetry 97 03/23/24 15:20 Oxygen Delivery Method Room Air 03/23/24 14:04 Medical Decision Making MDM Narrative Medical decision making narrative: Patient's labs were negative for any acute findings. Follow-up with family doctor which she has an appointment tomorrow. Lab results were printed for the patient to take to his doctor's appointment tomorrow. Patient is stable, troponin negative. Patient comfortable care plan for home. Differential Diagnosis Differential Diagnosis: Chest wall pain, atypical chest pain, [place] Lab Data Lab results reviewed: Yes I reviewed the patient's lab results Labs: Lab Results 03/23/24 Range/Units 14:20 WBC 7.9 (4.0-11.0) 10^3/uL RBC 5.56 (4.70-6.10) 10^6/uL Hgb 15.2 (14.0-18.0) g/dL Hct 45.9 (42.0-54.0) % MCV 82.6 (80.0-94.0) fL MCH 27.3 (25.9-34.0) pg MCHC 33.1 (29.9-35.2) g/dL RDW 14.1 (11.0-15.0) % Plt Count 295 (150-450) 10^3/uL MPV 10.7 (9.5-13.5) fL Neut % (Auto) 51.2 (43.0-75.0) % Lymph % (Auto) 38.6 (20.5-60.0) % [place] % (Auto) 7.6 (1.7-12.0) % Eos % (Auto) 1.4 (0.9-7.0) % Baso % (Auto) 0.8 (0.2-2.0) % Neut # (Auto) 4.0 (1.4-6.5) 10^3/uL Lymph # (Auto) 3.0 (1.2-3.8) 10^3/uL [place] # (Auto) 0.6 (0.3-0.8) 10^3/uL Eos # (Auto) 0.1 (0.0-0.7) 10^3/uL Baso # (Auto) 0.1 (0.0-0.1) 10^3/uL Abs Immat Gran (auto) 0.03 (0.00-0.03) 10^3/uL Imm/Tot Granulo (auto) 0.4 (0.0-0.5) % Sodium 139 (136-145) mmol/L Potassium 4.0 (3.5-5.1) mmol/L Chloride 103 (98-107) mmol/L Carbon Dioxide 28.6 (21.0-32.0) mmol/L Anion Gap 11.4 BUN 11.0 (7.0-18.0) mg/dL Creatinine 0.94 (0.70-1.30) mg/dL Est GFR ( Amer) >60 (>=60 mL/min/1.73m^2) Est GFR (Non-Af Amer) >60 (>=60 mL/min/1.73m^2) BUN/Creatinine Ratio 11.7 Glucose 82 (74-106) mg/dL Calcium 9.4 (8.5-10.1) mg/dL Total Bilirubin 0.6 (0.2-1.0) mg/dL AST 27 (15-37) U/L ALT 53 (16-63) U/L Alkaline Phosphatase 68 (46-116) U/L Troponin I High Sens 4.7 (4.0-76.1) pg/mL Total Protein 7.7 (6.4-8.2) g/dL Albumin 4.3 (3.4-5.0) g/dL Globulin 3.4 g/dL Albumin/Globulin Ratio 1.3 Imaging Data Chest x-ray: Radiologist's impression: ITS Impressions Chest X-Ray 03/23/24 14:11 IMPRESSION: 1. No acute cardiopulmonary disease. Electronically authenticated by: VERITO MONROY Date: 03/23/2024 15:18 ECG Data Attestation: I personally reviewed and interpreted this ECG as follows: Interpretation: EKG INTERPRETATION Time: [] 1407 Rate: [] 96 Rhythm: _ [] Normal sinus rhythm ST segments: _ [] No acute ST elevation or depression T waves: _ [] Ectopy: _ [] P wave/MS interval: _ [] QRS interval: _ [] QT interval: _ [] Comparison: _ [] Comparison EKG date: [] Performed by: [self] Discharge Plan Discharge Chief Complaint: Chest Pain Clinical Impression: Chest pain Patient Disposition: Home, Self-Care Time of Disposition Decision: 15:15 Condition: Good Mode of Transportation: Private Vehicle Prescriptions / Home Meds: No Action albuterol sulfate 2.5 mg /3 mL (0.083 %) solution for nebulization 2.5 mg inhalation Q8H PRN (Reason: shortness of breath or wheezing) budesonide-formoterol [Symbicort] 160-4.5 mcg/actuation HFA aerosol inhaler 1 inh INHALATION Q12H ranitidine HCl 150 mg capsule Print Language: Bangladeshi Instructions: Chest Pain (ED) Referrals: Juan José Mederos MD [Primary Care Provider] - 1 week Discharge Date/Time: 03/23/24 15:36
[2024-03-23 14:44] LABS: Basophils Absolute Auto 0.1 10^3/uL (0.0-0.1); Basophils Percent Auto 0.8 % (0.2-2.0); Eosinophils Absolute Auto 0.1 10^3/uL (0.0-0.7); Eosinophils Percent Auto 1.4 % (0.9-7.0); Hematocrit 45.9 % (42.0-54.0); Hemoglobin 15.2 g/dL (14.0-18.0); Immature Granulocytes Abs Auto 0.03 10^3/uL (0.00-0.03); Immature Granulocytes Pct Auto 0.4 % (0.0-0.5); Lymphocytes Percent Auto 38.6 % (20.5-60.0); Mean Corpuscular HGB Conc 33.1 g/dL (29.9-35.2); Mean Corpuscular Hemoglobin 27.3 pg (25.9-34.0); Mean Corpuscular Volume 82.6 fL (80.0-94.0); Mean Platelet Volume 10.7 fL (9.5-13.5); Monocytes Absolute Auto 0.6 10^3/uL (0.3-0.8); Monocytes Percent Auto 7.6 % (1.7-12.0); Neutrophils Percent Auto 51.2 % (43.0-75.0); Platelet Count 295 10^3/uL (150-450); Red Blood Count 5.56 10^6/uL (4.70-6.10); Red Cell Distribution Width 14.1 % (11.0-15.0); White Blood Count 7.9 10^3/uL (4.0-11.0)
[2024-03-23 15:04] LABS: Alanine Aminotransferase 53 U/L (16-63); Albumin Globulin Ratio 1.3; Albumin Level 4.3 g/dL (3.4-5.0); Alkaline Phosphatase 68 U/L (46-116); Anion Gap 11.4; Aspartate Amino Transferase 27 U/L (15-37); BUN Creatinine Ratio 11.7; Bilirubin Total 0.6 mg/dL (0.2-1.0); Calcium 9.4 mg/dL (8.5-10.1); Carbon Dioxide 28.6 mmol/L (21.0-32.0); Chloride 103 mmol/L (98-107); Estimated GFR (African America >60 (>=60 mL/min/1.73m^2); Estimated GFR (Non-African Ame >60 (>=60 mL/min/1.73m^2); Globulin 3.4 g/dL; Glucose 82 mg/dL (74-106); Sodium 139 mmol/L (136-145); Total Protein 7.7 g/dL (6.4-8.2); Troponin I High Sensitivity 4.7 pg/mL (4.0-76.1)
== END 2024-03-23 15:36 | disposition home or self-care (01) ==
PROVIDERS: Emergency Provider Emergency Medicine; PCP Family Medicine
DX: R07.9 Chest pain, unspecified (principal)
CPT/HCPCS: 36415; 71046; 80053; 84484; 85025; 93005; 99285